=== PATIENT | female | born 1935 | race Caucasian/White ===

== ENCOUNTER 2020-02-22 18:34 | Inpatient (IN) | payer MEDICARE, OTHER ==
[2020-02-22 19:20] LABS: HEMATOCRIT 37.5 % (36.0-47.0); MEAN CORPUSCULAR HEMOGLOBIN 30.3 pg (27.0-33.4); MEAN CORPUSCULAR HGB CONC 34.7 g/dL (32.0-36.0); MEAN CORPUSCULAR VOLUME 87 fl (80-97); PLATELET COUNT 230 10^3/uL (150-450); RED CELL DISTRIBUTION WIDTH 14.1 % (11.5-14.0); WHITE BLOOD COUNT 12.6 10^3/uL (4.0-10.5)
[2020-02-22 19:34] LABS: ALBUMIN 3.7 g/dL (3.5-5.0); ALKALINE PHOSPHATASE 177 U/L (38-126); ANION GAP 9 (5-19); ASPARTATE AMINO TRANSFERASE 30 U/L (14-36); BILIRUBIN,DIRECT 0.1 mg/dL (0.0-0.4); BILIRUBIN,TOTAL 1.1 mg/dL (0.2-1.3); BLOOD UREA NITROGEN 10 mg/dL (7-20); CALCIUM 8.7 mg/dL (8.4-10.2); CARBON DIOXIDE 27 mmol/L (22-30); CHLORIDE 86 mmol/L (98-107); GLUCOSE 111 mg/dL (75-110); POTASSIUM 4.9 mmol/L (3.6-5.0); TOTAL PROTEIN 7.1 g/dL (6.3-8.2)
[2020-02-22 19:39] LABS: ABSOLUTE MONOCYTES # (MANUAL) 0.9 10^3/uL (0.1-1.4); ANISOCYTOSIS SLIGHT; BAND NEUTROPHILS % (MANUAL) 1 % (3-5); BASOPHILS % (MANUAL) 0 % (0-2); BURR CELLS SLIGHT; EOSINOPHILS % (MANUAL) 0 % (0-6); LYMPHOCYTES % (MANUAL) 0 % (13-45); MONOCYTES % (MANUAL) 7 % (3-13); OVALOCYTES SLIGHT; PLATELET COMMENT ADEQUATE; POIKILOCYTOSIS SLIGHT; SEGMENTED NEUTROPHILS % (MAN) 92 % (42-78); TEAR DROP CELLS SLIGHT; TOTAL CELLS COUNTED 100; TOXIC GRANULATION SLIGHT; TOXIC VACUOLATION PRESENT
[2020-02-22] MEDS ORDERED: CEFTRIAXONE 1 GM/D5W RTU 1 GM/50 ML RTUPB IV ONE (20:26)
[2020-02-22] MEDS ORDERED: VANCOMYCIN HCL INJ 1000 MG VIAL IV ONE (20:26)
--- NOTE | 2020-02-22 20:30 | ER Document Report ---
ED General - General Chief Complaint: Skin Problem Stated Complaint: LEG PAIN Time Seen by Provider: 02/22/20 20:06 Notes: Patient is an 84-year-old female that comes to the emergency department by EMS from home for chief complaint of lower extremity pain and lower extremity swelling with redness and weeping fluid especially in the right leg. EMS reports home health called because of her legs. Patient reports leg pain but denies any other symptoms. Patient has a history of dementia and is a poor historian, EMS states they were able to get no other history including no home medications. No fevers reported, no other symptoms reported, history is very limited because of this and patient's dementia. Patient is able to tell me she is in [place] but she has not able to identify her location or events. - Related Data Allergies/Adverse Reactions: Tetanus Vaccines and Toxoid [Tetanus] Allergy (Mild, Verified 02/22/20 18:39) UNK Past Medical History - General Information source: Patient - Social History Smoking Status: Former Smoker Chew tobacco use (# tins/day): No Drug Abuse: None Lives with: Family Family History: Reviewed & Not Pertinent Patient has suicidal ideation: No Patient has homicidal ideation: No - Past Medical History Cardiac Medical History: Reports: Hx Heart Attack - 2008, Hx Hypertension Pulmonary Medical History: Denies: Hx Asthma Neurological Medical History: Denies: Hx Cerebrovascular Accident, Hx Seizures GI Medical History: Denies: Hx Hepatitis, Hx Hiatal Hernia, Hx Ulcer Infectious Medical History: Denies: Hx Hepatitis Past Surgical History: Reports: Hx Open Heart Surgery - 2008. Denies: Hx Hysterectomy, Hx Mastectomy, Hx Pacemaker Review of Systems - Review of Systems Constitutional: See HPI EENT: No symptoms reported Cardiovascular: See HPI Respiratory: No symptoms reported Gastrointestinal: No symptoms reported Genitourinary: No symptoms reported Female Genitourinary: No symptoms reported Musculoskeletal: See HPI Skin: See HPI Hematologic/Lymphatic: No symptoms reported Neurological/Psychological: No symptoms reported Physical Exam - Vital signs Vitals: Temp Pulse Resp BP Pulse Ox 99.1 F 58 L 18 182/70 H 96 02/22/20 18:41 02/22/20 18:41 02/22/20 18:41 02/22/20 18:41 02/22/20 18:41 - Notes Notes: GENERAL: Patient is alert, appears well, interactive, however she is confused HEAD: Normocephalic, atraumatic. EYES: Pupils equal, round, and reactive to light. Extraocular movements intact. ENT: Oral mucosa moist, tongue midline. Oropharynx unremarkable. Airway patent. NECK: Full range of motion. Supple. Trachea midline. No lymphadenopathy. LUNGS: Clear to auscultation bilaterally, no wheezes, rales, or rhonchi. No respiratory distress. Non-tender chest wall. HEART: Regular rate and rhythm. No murmur ABDOMEN: Soft, non-tender. Non-distended. EXTREMITIES: Bilateral pitting edema about 3+, extends up to the knees and thighs. Distal exam shows chronic staining of the skin bilaterally but in addition to this there is erythema and heat with tenderness and there are weeping open sores on the right lower extremity especially. Distal capillary refill and sensation intact. Unremarkable otherwise. BACK: no cervical, thoracic, lumbar midline tenderness. No saddle anesthesia, normal distal neurovascular exam. Moves all extremities in full range of motion. NEUROLOGICAL: Alert and oriented to person and city but no other details. Normal speech. Cranial nerves II through XII grossly intact. Strength 5/5 in all extremities. PSYCH: Normal affect, normal mood. SKIN: Warm, dry, normal turgor. No rashes or lesions noted. Course - Re-evaluation Re-evalutation: Review of records shows that patient has a history of hyperlipidemia on atorvastatin and hypertension on metoprolol and ramipril. Patient was initially hypertensive, no fever, not tachycardic. Patient is most likely not taking her medications. CBC shows leukocytosis with elevation of neutrophils but no bandemia. Chemistry shows significant hyponatremia at 121. No previous records for comparison. Patient has obvious weeping lower extremity swelling with chronic staining and also additional warmth and tenderness suggesting secondary cellulitis. This is worse on the right. Starting on antibiotics, placing on diffuse precautions and slow fluids, patient will require hospitalization. Attempted discussed with patient but she has dementia and did not understand. We have attempted to contact family and will contact them again. Discussed with Dr. Hall, hospitalist, patient accepted to medical floor full admission for lower extremity swelling, cellulitis, hyponatremia. - Vital Signs Vital signs: Temp Pulse Resp BP Pulse Ox 98.3 F 87 18 143/54 H 97 02/23/20 01:05 02/23/20 01:05 02/23/20 01:05 02/23/20 01:05 02/23/20 01:05 - Laboratory Result Diagrams: 02/22/20 19:03 02/22/20 19:03 Laboratory results interpreted by me: 02/22/20 02/22/20 02/22/20 19:03 19:03 19:03 WBC 12.6 H RDW 14.1 H Seg Neuts % (Manual) 92 H Band Neutrophils % 1 L Lymphocytes % (Manual) 0 L Abs Neuts (Manual) 11.7 H Abs Lymphs (Manual) 0.0 L Sodium 121.6 L Chloride 86 L Creatinine 0.41 L Glucose 111 H Alkaline Phosphatase 177 H NT-Pro-B Natriuret Pep 2250 H Discharge - Discharge Clinical Impression: Bilateral lower extremity edema, Hyponatremia Cellulitis Qualifiers: Site of cellulitis: extremity Site of cellulitis of extremity: lower extremity Laterality: right Qualified Code(s): L03.115 - Cellulitis of right lower limb Condition: Stable Disposition: ADMITTED INPATIENT Admitting Provider: Rafael (Hospitalist) Unit Admitted: Medical Floor
[2020-02-22] MEDS: NORMAL SALINE 1000 ML 1,000 ML IV PRN (20:39)
--- NOTE | 2020-02-22 22:22 | RADIOLOGY REPORT (SQ) ---
EXAM DESCRIPTION: XR CHEST 1 VIEW COMPLETED DATE/TME: 02/22/2020 21:01 CLINICAL HISTORY: 84 years Female bilateral LE swelling COMPARISON: None. FINDINGS: Cardiac enlargement. Atelectasis in the lung bases. Small left effusion may be present. Calcified aorta. No acute consolidation. Degenerative changes in the shoulders bilaterally. IMPRESSION: Cardiac enlargement Basilar atelectasis with possible small left effusion.
[2020-02-22] MEDS ORDERED: ONDANSETRON HCL INJ/PF 4 MG/2 ML SDV IV PRN (23:25)
[2020-02-22] MEDS ORDERED: MAG HYDROX/AL HYDROX/SIMETH SUSP 30 ML UDCUP PO PRN (23:25)
[2020-02-22] MEDS ORDERED: MAGNESIUM HYDROXIDE SUSP 30 ML UDCUP PO PRN (23:25)
[2020-02-22] MEDS ORDERED: HYDRALAZINE HCL INJ/PF 20 MG/1 ML SDV IV PRN (23:31)
[2020-02-22] MEDS ORDERED: GUAIFENESIN SYRP 200 MG/10 ML UDC PO PRN (23:31)
[2020-02-22] MEDS ORDERED: MORPHINE SULFATE 10 MG/ML INJ IV PRN ×2 (23:31)
[2020-02-22] MEDS ORDERED: VANCOMYCIN HCL INJ 1000 MG VIAL IV SCH (23:45)
[2020-02-23] MEDS ORDERED: PIPERACILLIN/TAZOBACTAM 3.375 GM VIAL IV SCH
[2020-02-23] MEDS ORDERED: PIPERACILLIN/TAZOBACTAM 3.375 GM VIAL IV ONE ×2 (00:08→04:03)
[2020-02-23] MEDS: MORPHINE SULFATE 10 MG/ML INJ IV PRN ×2 (00:25→04:52)
[2020-02-23] MEDS: LORAZEPAM INJ 2 MG/1 ML VIAL IV PRN ×2 (00:26→04:52)
[2020-02-23] MEDS: PIPERACILLIN SODIUM/TAZOBACTAM 3.375 GM in NORMAL SALINE 100 ML IV SCH ×4 (00:28→17:35)
[2020-02-23] MEDS: FAMOTIDINE 20 MG TABLET PO SCH ×3 (00:28→22:55)
--- NOTE | 2020-02-23 01:46 | PDOC H&P ---
History of Present Illness Admission Date/PCP: 02/22/2020 22:54 SAVITA GOETZ MD Patient complains of: Leg swelling History of Present Illness: JOSE LEAL is a 84 year old female who presents the emergency room with right lower extremity swelling. Patient has severe dementia and is unable to provide historical input. EMS and her home health worker provide the history of that she has chronic bilateral lower extremity edema and over the last several days has developed increased swelling with accompanying redness and weeping involving the right lower extremity. The swelling has also been associated with increased pain of the right lower extremity. No other associated or accompanying signs and symptoms have been noted. The patient had prior similar symptoms. No aggravating or ameliorating factors for her lower extremity swelling have been identified by her home health worker. In the emergency room she was found to have hyponatremia at 121.6, a white blood count of 12,600, an elevated BNP and a moderately more edematous, erythematous, warmer to touch right lower extremity as compared to her left. Patient seemed to have tenderness on palpation of the right lower extremity evidenced by grimace, vocalization of pain and withdrawal from the contact. Antibiotic therapy was initiated by the emergency room physician utilizing Rocephin and vancomycin. She was subsequently admitted to the hospital for further evaluation and treatment. Past Medical History Past Medical History: Due to the patient's severe dementia all historical data presented here is obtained from the best available reliable source. Cardiac Medical History: Reports: Coronary Artery Disease, Myocardial Infarction - 2009, Hypertension Pulmonary Medical History: Denies: Asthma, Chronic Obstructive Pulmonary Disease (COPD) EENT Medical History: Reports: Cataracts Denies: Ears - Hearing aids Neurological Medical History: Denies: Hemorrhagic CVA, Ischemic CVA, Seizures Endocrine Medical History: Denies: Diabetes Mellitus Type 1, Diabetes Mellitus Type 2, Hyperthyroidism, Hypothyroidism Renal/ Medical History: Denies: Chronic Kidney Disease, Nephrolithiasis Malignancy Medical History: Reports: None GI Medical History: Denies: Cirrhosis, Crohn's Disease, Hepatitis, Hiatal Hernia, Ulcerative Colitis Musculoskeltal Medical History: Denies: Arthritis, Gout Skin Medical History: Reports: Other - Chronic venous stasis bilateral lower extremities Denies: Eczema, Psoriasis Psychiatric Medical History: Reports: Dementia Denies: Alcohol Dependency, Substance Abuse, Tobacco Dependency Traumatic Medical History: Reports: None Hematology: Denies: Anemia, Bleeding Tendencies Infectious Medical History: Reports: None Past Surgical History Past Surgical History: Due to the patient's severe dementia all historical data presented here is obtained from the best available reliable source. Past Surgical History: Reports: Cardiac Catheterization - With angioplasty, Coronary Artery Bypass Graft, Other - Bilateral cataract surgery, partial colectomy Social History Information Source: [facility] Records Lives with: Spouse/Significant other Smoking Status: Former Smoker Electronic Cigarette use?: No Frequency of Alcohol Use: None Hx Recreational Drug Use: No Drugs: None Hx Prescription Drug Abuse: No Past Social History Note: Due to the patient's severe dementia all historical data presented here is obtained from the best available reliable source. - Advance Directive Resuscitation Status: Full Code Surrogate healthcare decision maker:: Prabhakar Leal Family History Family History: Other - No available source of reliable data Family History: Due to the patient's severe dementia all historical data presented here is obtained from the best available reliable source. Parental Family History Reviewed: No Children Family History Reviewed: No Sibling(s) Family History Reviewed.: No Medication/Allergy Home Medications: Aspirin [Ecotrin 325 mg EC Tablet] 325 mg PO DAILY 02/22/20 Atorvastatin Calcium [Lipitor 40 mg Tablet] 40 mg PO QHS 02/22/20 Furosemide [Lasix] 20 mg PO QHS 02/22/20 Magnesium Oxide 400 mg PO DAILY 02/22/20 Metoprolol Succinate [Toprol Xl 25 mg Tab.sr] 25 mg PO BID 02/22/20 Potassium Chloride 8 meq PO DAILY 02/22/20 Allergies/Adverse Reactions: Tetanus Vaccines and Toxoid [Tetanus] Allergy (Mild, Verified 02/22/20 18:39) UNK Review of Systems ROS unobtainable: Due to mental status Physical Exam Vital Signs: Temp Pulse Resp BP Pulse Ox 98.5 F 88 18 171/64 H 98 02/22/20 21:09 02/22/20 21:09 02/22/20 21:09 02/22/20 21:09 02/22/20 21:09 Intake & Output 02/20/20 02/21/20 02/22/20 23:59 23:59 23:59 Intake Total 50 Balance 50 Weight 80 kg General appearance: PRESENT: no acute distress, cooperative, obese Head exam: PRESENT: atraumatic, normocephalic Eye exam: PRESENT: conjunctiva pink. ABSENT: conjunctival injection, scleral icterus Ear exam: PRESENT: normal external ear exam. ABSENT: bleeding, drainage Mouth exam: PRESENT: dry mucosa, neck supple Neck exam: ABSENT: thyromegaly, tracheal deviation Respiratory exam: PRESENT: clear to auscultation fermin, symmetrical, unlabored Cardiovascular exam: PRESENT: RRR. ABSENT: clicks, gallop, rubs Pulses: PRESENT: normal carotid pulses, normal radial pulses Vascular exam: PRESENT: normal capillary refill. ABSENT: pallor GI/Abdominal exam: PRESENT: normal bowel sounds, soft Rectal exam: PRESENT: deferred Extremities exam: PRESENT: pedal edema, +2 edema - Left lower extremity with venous stasis changes, other - 3+ pitting edema of the right lower extremity with erythema, increased warmth and apparent tenderness to palpation. ABSENT: joint swelling Musculoskeletal exam: PRESENT: tenderness - Right lower extremity. ABSENT: deformity, dislocation Neurological exam: PRESENT: awake, CN II-XII grossly intact. ABSENT: oriented to person, oriented to place, oriented to time, oriented to situation Psychiatric exam: PRESENT: appropriate affect, normal mood Skin exam: PRESENT: erythema - with 3+ edema and increased warmth to touch in the right lower extremity. Multiple bullae/superficial areas of ulceration are noted anteriorly and laterally on the right lower extremity with serous to serosanguineous drainage noted.. ABSENT: jaundice, rash, urticaria Results Laboratory Results: 02/22/20 19:03 02/22/20 19:03 02/22/20 02/22/20 19:03 19:03 WBC 12.6 H RBC 4.30 Hgb 13.0 Hct 37.5 MCV 87 MCH 30.3 MCHC 34.7 RDW 14.1 H Plt Count 230 Seg Neutrophils % Not Reportable Sodium 121.6 L Potassium 4.9 Chloride 86 L Carbon Dioxide 27 Anion Gap 9 BUN 10 Creatinine 0.41 L Est GFR ( Amer) > 60 Glucose 111 H Calcium 8.7 Total Bilirubin 1.1 AST 30 Alkaline Phosphatase 177 H Total Protein 7.1 Albumin 3.7 02/22/20 19:03 NT-Pro-B Natriuret Pep 2250 H Impressions: Chest X-Ray 02/22/20 21:01 IMPRESSION: Cardiac enlargement Basilar atelectasis with possible small left effusion. Assessment and Plan - Diagnosis (5) Leukocytosis Qualifiers: Leukocytosis type: unspecified Qualified Code(s): D72.829 - Elevated white blood cell count, unspecified Is this a current diagnosis for this admission?: Yes (6) Dementia Qualifiers: Dementia type: unspecified type Dementia behavioral disturbance: without behavioral disturbance Qualified Code(s): F03.90 - Unspecified dementia without behavioral disturbance Is this a current diagnosis for this admission?: Yes - Plan Summary Summary: Patient will be admitted to the medical floor where she will receive routine supportive and symptomatic cares. She will be treated with IV Zosyn and vancomycin initially. She received morphine sulfate 2 to 4 mg IV every 2 hours as needed for pain. She will receive Ativan 1 mg IV every 4 hours as needed for anxiety or restlessness. Her lower extremities will be elevated while she is in bed. CBCs, metabolic profiles and magnesium levels will be obtained as appropriate. Patient will resume her usual home medications, as appropriate, as soon as her medication list has been verified and reconciled. She will be treated with a heart healthy diet. - Time Time Spent with patient: Less than 15 minutes Anticipated discharge: Home with Homehealth, SNF - Inpatient Certification Based on my medical assessment, after consideration of the patient's comorbidities, presenting symptoms, or acuity I expect that the services needed warrant INPATIENT care.: Yes I certify that my determination is in accordance with my understanding of Medicare's requirements for reasonable and necessary INPATIENT services [42 CFR 412.3e].: Yes Medical Necessity: Significant Comorbidiites Make Outpatient Treatment Too Risky, Need Close Monitoring Due to Risk of Patient Decompensation, Need for IV Antibiotics, Risk of Complication if Not Cared For in Hospital
[2020-02-23 04:18] LABS: APPEARANCE,URINE CLOUDY; BILIRUBIN,URINE NEGATIVE (NEGATIVE); COLOR,URINE YELLOW; GLUCOSE, URINE NEGATIVE (NEGATIVE); KETONES,URINE 20 mg/dL (NEGATIVE); LEUKOCYTE ESTERASE,URINE SMALL (NEGATIVE); NITRITE,URINE NEGATIVE (NEGATIVE); PROTEIN,URINE NEGATIVE (NEGATIVE); URINE SPECIFIC GRAVITY 1.019; UROBILINOGEN,URINE NEGATIVE mg/dL (<2.0)
[2020-02-23] MEDS: HEPARIN SOD (PORCINE) 5,000 UNIT/ML 1 ML VIAL SUBCUT SCH ×3 (05:00→22:55)
[2020-02-23 05:03] LABS: HEMATOCRIT 34.6 % (36.0-47.0); HEMOGLOBIN 11.8 g/dL (12.0-15.5); MEAN CORPUSCULAR HEMOGLOBIN 29.8 pg (27.0-33.4); MEAN CORPUSCULAR HGB CONC 34.3 g/dL (32.0-36.0); MEAN CORPUSCULAR VOLUME 87 fl (80-97); PLATELET COUNT 193 10^3/uL (150-450); RED BLOOD COUNT 3.97 10^6/uL (3.72-5.28); RED CELL DISTRIBUTION WIDTH 14.4 % (11.5-14.0); WHITE BLOOD COUNT 17.1 10^3/uL (4.0-10.5)
[2020-02-23 05:29] LABS: ANION GAP 8 (5-19); BLOOD UREA NITROGEN 8 mg/dL (7-20); CALCIUM 8.5 mg/dL (8.4-10.2); CARBON DIOXIDE 25 mmol/L (22-30); CHLORIDE 89 mmol/L (98-107); GLUCOSE 95 mg/dL (75-110); POTASSIUM 4.6 mmol/L (3.6-5.0)
--- NOTE | 2020-02-23 11:12 | PDOC PROGRESS REPORT ---
Subjective Progress Note for:: 02/23/20 Subjective:: Patient is demented. She continued to moan throughout the encounter but not answer any questions. Reason For Visit: BILATERAL LOWER EXTREMITY CELLULITIS,HYPONATREMIA Physical Exam Vital Signs: Temp Pulse Resp BP Pulse Ox 97.9 F 89 14 139/76 H 96 02/23/20 08:00 02/23/20 08:00 02/23/20 08:00 02/23/20 08:00 02/23/20 08:00 Intake & Output 02/22/20 02/23/20 02/24/20 06:59 06:59 06:59 Intake Total 250 Output Total 100 Balance 150 Weight 85.5 kg General appearance: PRESENT: mild distress, well-developed. ABSENT: cooperative Head exam: PRESENT: atraumatic, normocephalic Eye exam: PRESENT: other - Unable to assess Ear exam: PRESENT: normal external ear exam. ABSENT: bleeding, drainage Mouth exam: PRESENT: dry mucosa, tongue midline Neck exam: ABSENT: carotid bruit, lymphadenopathy, thyromegaly Respiratory exam: PRESENT: clear to auscultation fermin - Anteriorly, symmetrical, unlabored. ABSENT: accessory muscle use, prolonged expiratory phas, stridor, tachypnea, wheezes Cardiovascular exam: PRESENT: RRR, +S1, +S2, systolic murmur - 2/6 GI/Abdominal exam: PRESENT: normal bowel sounds, soft. ABSENT: distended, guarding, tenderness Rectal exam: PRESENT: deferred Extremities exam: PRESENT: pedal edema - Improved as evidenced by wrinkled skin on both feet Neurological exam: PRESENT: other - Continuous moaning. Difficult to assess. ABSENT: alert, awake Psychiatric exam: PRESENT: agitated - Mildly agitated Focused psych exam: PRESENT: other - Unable to assess Skin exam: PRESENT: dry, erythema, warm Results Laboratory Results: 02/23/20 04:29 02/23/20 04:29 02/22/20 02/22/20 02/23/20 19:03 19:03 03:51 WBC 12.6 H RBC 4.30 Hgb 13.0 Hct 37.5 MCV 87 MCH 30.3 MCHC 34.7 RDW 14.1 H Plt Count 230 Seg Neutrophils % Not Reportable Sodium 121.6 L Potassium 4.9 Chloride 86 L Carbon Dioxide 27 Anion Gap 9 BUN 10 Creatinine 0.41 L Est GFR ( Amer) > 60 Glucose 111 H Calcium 8.7 Magnesium Total Bilirubin 1.1 AST 30 Alkaline Phosphatase 177 H Total Protein 7.1 Albumin 3.7 TSH Urine Color YELLOW Urine Appearance CLOUDY Urine pH 8.0 Ur Specific [place] 1.019 Urine Protein NEGATIVE Urine Glucose (UA) NEGATIVE Urine Ketones 20 H Urine Blood SMALL H Urine Nitrite NEGATIVE Ur Leukocyte Esterase SMALL H Urine WBC (Auto) 7 Urine RBC (Auto) 4 02/23/20 02/23/20 02/23/20 04:29 04:29 04:29 WBC 17.1 H RBC 3.97 Hgb 11.8 L Hct 34.6 L MCV 87 MCH 29.8 MCHC 34.3 RDW 14.4 H Plt Count 193 Seg Neutrophils % Sodium 122.2 L Potassium 4.6 Chloride 89 L Carbon Dioxide 25 Anion Gap 8 BUN 8 Creatinine 0.32 L Est GFR ( Amer) > 60 Glucose 95 Calcium 8.5 Magnesium 1.9 Total Bilirubin AST Alkaline Phosphatase Total Protein Albumin TSH 3.09 Urine Color Urine Appearance Urine pH Ur Specific [place] Urine Protein Urine Glucose (UA) Urine Ketones Urine Blood Urine Nitrite Ur Leukocyte Esterase Urine WBC (Auto) Urine RBC (Auto) 02/22/20 19:03 NT-Pro-B Natriuret Pep 2250 H Impressions: Chest X-Ray 02/22/20 21:01 IMPRESSION: Cardiac enlargement Basilar atelectasis with possible small left effusion. Assessment and Plan - Diagnosis (1) Cellulitis of right lower extremity Is this a current diagnosis for this admission?: Yes Plan: 02/23/2020 (4) Chronic venous stasis dermatitis of both lower extremities Is this a current diagnosis for this admission?: Yes Plan: 02/23/2020 Possibly a combination of chronic lower extremity edema versus some level of congestive heart failure. There is cardiomegaly. There is no echocardiogram on record. I will order an echocardiogram so that we can bolster her medication regimen if there is failure present. (5) Localized edema Is this a current diagnosis for this admission?: Yes Plan: 02/23/2020 As noted above the edema is likely multifactorial. We will continue gentle diuretic therapy at this time. Elevate legs when possible. Compression therapy would likely be very uncomfortable for the patient. (6) Leukocytosis Qualifiers: Leukocytosis type: unspecified Qualified Code(s): D72.829 - Elevated white blood cell count, unspecified Is this a current diagnosis for this admission?: Yes Plan: 02/23/2020 Likely a stress reaction from the infection. She is on antibiotic therapy. Monitor with serial CBC studies. (7) Dementia Qualifiers: Dementia type: unspecified type Dementia behavioral disturbance: without behavioral disturbance Qualified Code(s): F03.90 - Unspecified dementia without behavioral disturbance Is this a current diagnosis for this admission?: Yes Plan: 02/23/2020 Unfortunately the patient cannot provide additional information at this time. She is not on any medications specifically for dementia. Will monitor closely. If we discover any additional information we can adjust her treatment regimen accordingly. - Plan Summary Summary: Patient will be admitted to the medical floor where she will receive routine supportive and symptomatic cares. She will be treated with IV Zosyn and va ncomycin initially. She received morphine sulfate 2 to 4 mg IV every 2 hours as needed for pain. She will receive Ativan 1 mg IV every 4 hours as needed for anxiety or restlessness. Her lower extremities will be elevated while she is in bed. CBCs, metabolic profiles and magnesium levels will be obtained as appropriate. Patient will resume her usual home medications, as appropriate, as soon as her medication list has been verified and reconciled. She will be treated with a heart healthy diet. - Time Time Spent with patient: 15-24 minutes Medications reviewed and adjusted accordingly: Yes Anticipated discharge: Home
[2020-02-23] MEDS: DOCUSATE SODIUM 100 MG CAPSULE PO SCH ×2 (11:16→17:32)
[2020-02-23] MEDS: MAGNESIUM OXIDE 400 MG TABLET PO SCH (12:48)
[2020-02-23] MEDS: POTASSIUM CHLORIDE 10 MEQ TABLET.ER PO SCH (12:48)
[2020-02-23] MEDS: METOPROLOL SUCCINATE 25 MG TAB.SR.24H PO SCH (17:32)
[2020-02-23] MEDS: NORMAL SALINE 1000 ML 1,000 ML IV PRN ×2 (17:35→20:35)
[2020-02-23] MEDS ORDERED: ZIPRASIDONE MESYLATE INJ/PF 20 MG SDV IM PRN (18:45)
[2020-02-23] MEDS ORDERED: PROMETHAZINE HCL INJ 25 MG/1 ML VIAL IV PRN (18:46)
[2020-02-23] MEDS ORDERED: PROMETHAZINE HCL 25 MG SUPP (4 SUPP/ER DISP) PR PRN (18:46)
[2020-02-23] MEDS ORDERED: PROMETHAZINE HCL 25 MG TABLET PO PRN (18:46)
[2020-02-23] MEDS ORDERED: NORMAL SALINE 1000 ML 1,000 ML IV ONE (19:00)
[2020-02-23] MEDS: VANCOMYCIN HCL 1,000 MG in DEXTROSE 5%-WATER 250 ML IV SCH (20:35)
[2020-02-23] MEDS ORDERED: FUROSEMIDE 20 MG TABLET PO SCH (22:00)
[2020-02-23] MEDS: ATORVASTATIN CALCIUM 40 MG TABLET PO SCH (22:55)
[2020-02-23 23:41] LABS: OSMOLALITY,URINE 517 mOsm/kg (300-900)
[2020-02-23 23:44] LABS: URINE SODIUM 107 mmol/L (30-90)
[2020-02-24] MEDS: PIPERACILLIN SODIUM/TAZOBACTAM 3.375 GM in NORMAL SALINE 100 ML IV SCH ×5 (00:40→23:49)
[2020-02-24] MEDS: HEPARIN SOD (PORCINE) 5,000 UNIT/ML 1 ML VIAL SUBCUT SCH ×3 (05:14→22:20)
[2020-02-24] MEDS: NORMAL SALINE 1000 ML 1,000 ML IV PRN (05:14)
[2020-02-24 05:32] LABS: HEMOGLOBIN 12.8 g/dL (12.0-15.5); MEAN CORPUSCULAR HEMOGLOBIN 29.8 pg (27.0-33.4); MEAN CORPUSCULAR HGB CONC 34.5 g/dL (32.0-36.0); MEAN CORPUSCULAR VOLUME 87 fl (80-97); PLATELET COUNT 177 10^3/uL (150-450); RED BLOOD COUNT 4.28 10^6/uL (3.72-5.28); RED CELL DISTRIBUTION WIDTH 14.3 % (11.5-14.0); WHITE BLOOD COUNT 16.8 10^3/uL (4.0-10.5)
[2020-02-24] MEDS: MORPHINE SULFATE 10 MG/ML INJ IV PRN (05:32)
[2020-02-24 07:07] LABS: ANION GAP 9 (5-19); BLOOD UREA NITROGEN 7 mg/dL (7-20); CALCIUM 7.8 mg/dL (8.4-10.2); CARBON DIOXIDE 22 mmol/L (22-30); CHLORIDE 93 mmol/L (98-107); GLUCOSE 92 mg/dL (75-110); POTASSIUM 4.2 mmol/L (3.6-5.0)
[2020-02-24] MEDS ORDERED: PROMETHAZINE HCL 25 MG SUPP.RECT PR PRN (08:59)
[2020-02-24] MEDS ORDERED: POTASSIUM CHLORIDE 8 MEQ PO SCH (10:00)
[2020-02-24] MEDS ORDERED: (PENDING PHARMACY ID) (Magnesium Oxide [Magnesium Oxide] 400 MG) PO SCH (10:00)
[2020-02-24] MEDS: FAMOTIDINE 20 MG TABLET PO SCH ×2 (10:20→22:20)
[2020-02-24] MEDS: MAGNESIUM OXIDE 400 MG TABLET PO SCH (10:20)
[2020-02-24] MEDS: DOCUSATE SODIUM 100 MG CAPSULE PO SCH ×2 (10:20→19:07)
[2020-02-24] MEDS: ASPIRIN 325 MG TABLET, ENT COATED PO SCH (10:20)
[2020-02-24] MEDS: POTASSIUM CHLORIDE 10 MEQ TABLET.ER PO SCH (10:20)
[2020-02-24] MEDS: METOPROLOL SUCCINATE 25 MG TAB.SR.24H PO SCH ×2 (10:22→19:06)
[2020-02-24] MEDS ORDERED: FUROSEMIDE 20 MG TABLET PO ONE ×2 (12:21→17:00)
--- NOTE | 2020-02-24 12:25 | PDOC CONSULTATION ---
Consultation Consult Date: 02/24/20 Provider Consulted: ABHAY JUNG Consult reason:: Congestive heart failure History of Present Illness Admission Date/PCP: 02/22/20 23:06 SAVITA GOETZ MD Patient complains of: Patient is demented. No complaints voiced History of Present Illness: JOES QUIROZ is a 84 year old female No reliable history can be obtained on account of advanced dementia Patient with possible underlying coronary artery disease given healed sternotomy incision who presents with cellulitis. No other history can be obtained reliably. Presently she is not reporting any chest pain or dyspnea. Intravenous antibiotic therapy has been commenced for possible cellulitis. Unable to obtain family history Unable to ascertain smoking status Unable to obtain surgical history although patient has a healed sternotomy scar and evidence of sternotomy on chest x-ray. There is also cardiomegaly. Past Medical History Cardiac Medical History: Reports: Coronary Artery Disease, Myocardial Infarction - 2009, Hypertension Pulmonary Medical History: Denies: Asthma, Chronic Obstructive Pulmonary Disease (COPD) EENT Medical History: Reports: Cataracts Denies: Ears - Hearing aids Neurological Medical History: Denies: Hemorrhagic CVA, Ischemic CVA, Seizures Endocrine Medical History: Denies: Diabetes Mellitus Type 1, Diabetes Mellitus Type 2, Hyperthyroidism, Hypothyroidism Renal/ Medical History: Denies: Chronic Kidney Disease, Nephrolithiasis Malignancy Medical History: Reports: None GI Medical History: Denies: Cirrhosis, Crohn's Disease, Hepatitis, Hiatal Hernia, Ulcerative Colitis Musculoskeltal Medical History: Denies: Arthritis, Gout Skin Medical History: Reports: Other - Chronic venous stasis bilateral lower extremities Denies: Eczema, Psoriasis Psychiatric Medical History: Reports: Dementia Denies: Alcohol Dependency, Substance Abuse, Tobacco Dependency Traumatic Medical History: Reports: None Hematology: Denies: Anemia, Sickle Cell Disease, Bleeding Tendencies Infectious Medical History: Reports: None Past Surgical History Past Surgical History: Reports: Cardiac Catheterization - With angioplasty, Coronary Artery Bypass Graft, Other - Bilateral cataract surgery, partial colectomy Denies: Amputation, Hysterectomy, Mastectomy, Pacemaker Social History Lives with: Family Smoking Status: Former Smoker Electronic Cigarette use?: No Frequency of Alcohol Use: None Hx Recreational Drug Use: No Drugs: None Hx Prescription Drug Abuse: No - Advance Directive Resuscitation Status: Full Code Family History Family History: Reviewed & Not Pertinent Parental Family History Reviewed: No - Advanced dementia Children Family History Reviewed: NA Sibling(s) Family History Reviewed.: NA Medication/Allergy Home Medications: Aspirin [Ecotrin 325 mg EC Tablet] 325 mg PO DAILY 02/22/20 Atorvastatin Calcium [Lipitor 40 mg Tablet] 40 mg PO QHS 02/22/20 Furosemide [Lasix] 20 mg PO Q12 02/22/20 Magnesium Oxide 400 mg PO DAILY 02/22/20 Potassium Chloride 8 meq PO DAILY 02/22/20 Cephalexin Monohydrate [Keflex 500 mg Capsule] 500 mg PO Q8 MDD FOR 7 DAYS 02/23/20 Ciclopirox/Skin Cleanser No.28 [Ciclodan 0.77% Cream Kit] 1 applic TOP BID 02/23/20 Lactobacillus Acidophilus [Florajen] 460 mg PO DAILY 02/23/20 Metoprolol Tartrate [Lopressor 25 mg Tablet] 25 mg PO BID 02/23/20 Allergies/Adverse Reactions: Tetanus Vaccines and Toxoid [Tetanus] Allergy (Mild, Verified 02/22/20 18:39) UNK Review of Systems ROS unobtainable: Due to mental status - Advanced dementia Physical Exam Vital Signs: Temp Pulse Resp BP Pulse Ox 98.5 F 58 L 18 162/68 H 93 02/24/20 07:58 02/24/20 07:58 02/24/20 07:58 02/24/20 10:04 02/24/20 07:58 Intake & Output 02/23/20 02/24/20 02/25/20 06:59 06:59 06:59 Intake Total 1250 2750 100 Output Total 100 300 Balance 1150 2450 100 Weight 85.5 kg 82.3 kg General appearance: PRESENT: cooperative, well-developed, well-nourished Head exam: PRESENT: atraumatic, normocephalic Eye exam: PRESENT: conjunctiva pink, EOMI Respiratory exam: PRESENT: decreased breath sounds, symmetrical, unlabored Cardiovascular exam: PRESENT: RRR, +S1, +S2 Pulses: PRESENT: normal radial pulses GI/Abdominal exam: PRESENT: soft Rectal exam: PRESENT: deferred Neurological exam: PRESENT: alert, awake, oriented to person, oriented to place, oriented to time Psychiatric exam: PRESENT: other Skin exam: PRESENT: dry, intact, normal color Results Laboratory Results: 02/24/20 05:05 02/24/20 06:19 02/23/20 02/23/20 02/24/20 13:30 23:13 05:05 WBC 16.8 H RBC 4.28 Hgb 12.8 Hct 37.0 MCV 87 MCH 29.8 MCHC 34.5 RDW 14.3 H Plt Count 177 Sodium Potassium Chloride Carbon Dioxide Anion Gap BUN Creatinine Est GFR ( Amer) Est GFR (Non-Af Amer) Glucose Serum Osmolality 248 L Calcium Magnesium Urine Osmolality 517 02/24/20 02/24/20 05:05 06:19 WBC RBC Hgb Hct MCV MCH MCHC RDW Plt Count Sodium Cancelled 123.6 L Potassium Cancelled 4.2 Chloride Cancelled 93 L Carbon Dioxide Cancelled 22 Anion Gap Cancelled 9 BUN Cancelled 7 Creatinine Cancelled 0.37 L Est GFR ( Amer) Cancelled > 60 Est GFR (Non-Af Amer) Cancelled Glucose Cancelled 92 Serum Osmolality Calcium Cancelled 7.8 L Magnesium Cancelled 1.8 Urine Osmolality 02/22/20 19:03 NT-Pro-B Natriuret Pep 2250 H Impressions: Chest X-Ray 02/22/20 21:01 IMPRESSION: Cardiac enlargement Basilar atelectasis with possible small left effusion. Assessment & Plan - Diagnosis (1) CHF (congestive heart failure) Is this a current diagnosis for this admission?: Yes Plan: Presently patient does not appear to be decompensated. We will obtain transthoracic echocardiogram given possible history of CABG as well as abnormal chest x-ray with evidence of pulmonary edema likely We will watch fluid status closely. We will initiate therapy with beta-blockers and NILS inhibitors. (2) Cellulitis Qualifiers: Site of cellulitis: extremity Site of cellulitis of extremity: lower extremity Laterality: right Qualified Code(s): L03.115 - Cellulitis of right lower limb Is this a current diagnosis for this admission?: Yes Plan: Continue antibiotic therapy. - Notes Notes: Patient with advanced dementia with possible healed sternotomy indicating underlying coronary artery disease and CABG. In the absence of any reliable history we will proceed with echocardiogram and initiate guideline directed medical therapy for this consisting of aspirin statin and beta-em. We will watch fluid status closely. Chest x-ray is abnormal. There may be ongoing consolidation versus pulmonary edema. We will also obtain a twelve-lead EKG.
[2020-02-24] MEDS: LOSARTAN POTASSIUM 25 MG TABLET PO SCH (12:26)
--- NOTE | 2020-02-24 12:27 | PDOC PROGRESS REPORT ---
Subjective Progress Note for:: 02/24/20 Subjective:: The patient is sitting in the chair. She is interacting verbally but quite flat. Her lunch tray is sitting in front of her untouched. She does feel that her leg pain is better. Of note she has cyanotic changes in both hands at the fingertips. Reason For Visit: BILATERAL LOWER EXTREMITY CELLULITIS,HYPONATREMIA Physical Exam Vital Signs: Temp Pulse Resp BP Pulse Ox 98.5 F 58 L 18 162/68 H 93 02/24/20 07:58 02/24/20 07:58 02/24/20 07:58 02/24/20 10:04 02/24/20 07:58 Intake & Output 02/23/20 02/24/20 02/25/20 06:59 06:59 06:59 Intake Total 1250 2750 100 Output Total 100 300 Balance 1150 2450 100 Weight 85.5 kg 82.3 kg General appearance: PRESENT: no acute distress, cooperative, well-developed Head exam: PRESENT: atraumatic, normocephalic Eye exam: PRESENT: conjunctiva pink. ABSENT: scleral icterus Ear exam: PRESENT: normal external ear exam. ABSENT: bleeding, drainage Mouth exam: PRESENT: moist, tongue midline Respiratory exam: PRESENT: rales - Faint rales at bases, symmetrical, unlabored. ABSENT: prolonged expiratory phas, rhonchi, tachypnea, wheezes Cardiovascular exam: PRESENT: RRR, +S1, +S2, systolic murmur - 2/6 GI/Abdominal exam: PRESENT: normal bowel sounds, soft. ABSENT: distended, guarding, tenderness Rectal exam: PRESENT: deferred Gentrourinary exam: ABSENT: indwelling catheter Extremities exam: PRESENT: pedal edema, other - Upper extremities are edematous as well. Musculoskeletal exam: PRESENT: ambulatory Neurological exam: PRESENT: alert, awake, oriented to person, oriented to place Psychiatric exam: PRESENT: flat affect. ABSENT: agitated, anxious Focused psych exam: ABSENT: delusional, paranoid, restlessness Skin exam: PRESENT: cyanosis - Fingertips on both hands are cool to the touch with dusky discoloration at the tips., dry, erythema - Bilateral lower extremities, warm Results Laboratory Results: 02/24/20 05:05 02/24/20 06:19 02/23/20 02/23/20 02/24/20 13:30 23:13 05:05 WBC 16.8 H RBC 4.28 Hgb 12.8 Hct 37.0 MCV 87 MCH 29.8 MCHC 34.5 RDW 14.3 H Plt Count 177 Sodium Potassium Chloride Carbon Dioxide Anion Gap BUN Creatinine Est GFR ( Amer) Est GFR (Non-Af Amer) Glucose Serum Osmolality 248 L Calcium Magnesium Urine Osmolality 517 02/24/20 02/24/20 05:05 06:19 WBC RBC Hgb Hct MCV MCH MCHC RDW Plt Count Sodium Cancelled 123.6 L Potassium Cancelled 4.2 Chloride Cancelled 93 L Carbon Dioxide Cancelled 22 Anion Gap Cancelled 9 BUN Cancelled 7 Creatinine Cancelled 0.37 L Est GFR ( Amer) Cancelled > 60 Est GFR (Non-Af Amer) Cancelled Glucose Cancelled 92 Serum Osmolality Calcium Cancelled 7.8 L Magnesium Cancelled 1.8 Urine Osmolality 02/22/20 19:03 NT-Pro-B Natriuret Pep 2250 H Impressions: Chest X-Ray 02/22/20 21:01 IMPRESSION: Cardiac enlargement Basilar atelectasis with possible small left effusion. Assessment and Plan - Diagnosis (1) Cellulitis of right lower extremity Is this a current diagnosis for this admission?: Yes Plan: 02/23/2020 02/24/2020 Continue current antibiotics. At some point I would like to see if I can narrow the spectrum. Clindamycin or Bactrim might be effective. The white blood cell count did go up. I will continue to monitor. If it continues to rise I may need to redraw blood cultures and change the antibiotics. (2) Hyponatremia Is this a current diagnosis for this admission?: Yes Plan: 02/23/2020 We will check urine sodium, urine osmolality and serum osmolality 02/24/2020 Patient with SIADH. Will stop IV fluids, place 1.2 L fluid restriction and continue to monitor electrolytes. (3) Bilateral lower extremity edema Is this a current diagnosis for this admission?: Yes Plan: 02/23/2020 Elevate legs when possible. Diuresis as tolerated. 02/24/2020 Changes as noted above. Try and elevate legs when possible. (4) Chronic venous stasis dermatitis of both lower extremities Is this a current diagnosis for this admission?: Yes Plan: 02/23/2020 Possibly a combination of chronic lower extremity edema versus some level of congestive heart failure. There is cardiomegaly. There is no echocardiogram on record. I will order an echocardiogram so that we can bolster her medication regimen if there is failure present. 02/24/2020 The patient will have an echocardiogram. We will see if there is chronic lower extremity edema that is cardiac in its etiology. No compression at this time as it would be quite painful for the patient. (5) Leukocytosis Qualifiers: Leukocytosis type: unspecified Qualified Code(s): D72.829 - Elevated white blood cell count, unspecified Is this a current diagnosis for this admission?: Yes Plan: 02/23/2020 Likely a stress reaction from the infection. She is on antibiotic therapy. Monitor with serial CBC studies. 02/24/2020 White count is slightly better than yesterday. It is still higher than at adm ission. Continue antibiotics and continue to monitor white blood cell count. (6) Dementia Qualifiers: Dementia type: unspecified type Dementia behavioral disturbance: without behavioral disturbance Qualified Code(s): F03.90 - Unspecified dementia without behavioral disturbance Is this a current diagnosis for this admission?: Yes Plan: 02/23/2020 Unfortunately the patient cannot provide additional information at this time. She is not on any medications specifically for dementia. Will monitor closely. If we discover any additional information we can adjust her treatment regimen accordingly. 02/24/2020 The patient was actually sitting up in the chair. She had not touched her lunch. She did try and answer questions but the answers were somewhat vague. She did not establish eye contact. We will continue to monitor. (7) Raynaud phenomenon Qualifiers: Raynaud?s-associated gangrene presence: without gangrene Qualified Code(s): I73.00 - Raynaud's syndrome without gangrene Is this a current diagnosis for this admission?: Yes Plan: 02/24/2020 The patient displays typical characteristics for ray nodes. I spoke with the nurse will try and keep the patient's hands warm. She is already on aspirin as well as her cardiac medications. We will continue to monitor. If conservative therapy is not enough we may consider additional medications. - Plan Summary Summary: Patient will be admitted to the medical floor where she will receive routine supportive and symptomatic cares. She will be treated with IV Zosyn and vancomycin initially. She received morphine sulfate 2 to 4 mg IV every 2 hours as needed for pain. She will receive Ativan 1 mg IV every 4 hours as needed for anxiety or restlessness. Her lower extremities will be elevated while she is in bed. CBCs, metabolic profiles and magnesium levels will be obtained as appropriate. Patient will resume her usual home medications, as appropriate, as soon as her medication list has been verified and reconciled. She will be treated with a heart healthy diet. - Time Time Spent with patient: 15-24 minutes Medications reviewed and adjusted accordingly: Yes
--- NOTE | 2020-02-24 14:03 | EKG REPORT ---
SEVERITY:- ABNORMAL ECG - SINUS RHYTHM INCOMPLETE RBBB AND LAFB CONSIDER ANTERIOR INFARCT : Confirmed by: Edmond Luciano MD 24-Feb-2020 14:02:37
[2020-02-24] MEDS: VANCOMYCIN HCL 1,000 MG in DEXTROSE 5%-WATER 250 ML IV SCH (22:19)
[2020-02-24] MEDS: ATORVASTATIN CALCIUM 40 MG TABLET PO SCH (22:19)
[2020-02-25 05:21] LABS: HEMATOCRIT 35.5 % (36.0-47.0); HEMOGLOBIN 12.3 g/dL (12.0-15.5); MEAN CORPUSCULAR HEMOGLOBIN 30.4 pg (27.0-33.4); MEAN CORPUSCULAR HGB CONC 34.6 g/dL (32.0-36.0); MEAN CORPUSCULAR VOLUME 88 fl (80-97); PLATELET COUNT 235 10^3/uL (150-450); RED BLOOD COUNT 4.06 10^6/uL (3.72-5.28); RED CELL DISTRIBUTION WIDTH 14.9 % (11.5-14.0); WHITE BLOOD COUNT 10.6 10^3/uL (4.0-10.5)
[2020-02-25 05:44] LABS: ANION GAP 6 (5-19); BLOOD UREA NITROGEN 11 mg/dL (7-20); CALCIUM 8.1 mg/dL (8.4-10.2); CARBON DIOXIDE 24 mmol/L (22-30); CHLORIDE 94 mmol/L (98-107); GLUCOSE 92 mg/dL (75-110); POTASSIUM 4.3 mmol/L (3.6-5.0)
[2020-02-25] MEDS: HEPARIN SOD (PORCINE) 5,000 UNIT/ML 1 ML VIAL SUBCUT SCH ×3 (05:45→21:45)
[2020-02-25] MEDS: ACETAMINOPHEN 325 MG TABLET PO PRN (05:45)
[2020-02-25] MEDS: PIPERACILLIN SODIUM/TAZOBACTAM 3.375 GM in NORMAL SALINE 100 ML IV SCH ×3 (05:45→17:56)
[2020-02-25] MEDS: METOPROLOL SUCCINATE 25 MG TAB.SR.24H PO SCH ×2 (09:48→17:56)
[2020-02-25] MEDS: POTASSIUM CHLORIDE 10 MEQ TABLET.ER PO SCH (09:48)
[2020-02-25] MEDS: ASPIRIN 325 MG TABLET, ENT COATED PO SCH (09:48)
[2020-02-25] MEDS: FAMOTIDINE 20 MG TABLET PO SCH ×2 (09:48→21:50)
[2020-02-25] MEDS: LOSARTAN POTASSIUM 25 MG TABLET PO SCH (09:49)
[2020-02-25] MEDS: DOCUSATE SODIUM 100 MG CAPSULE PO SCH ×2 (09:49→17:56)
[2020-02-25] MEDS: MAGNESIUM OXIDE 400 MG TABLET PO SCH (09:49)
[2020-02-25] MEDS: FUROSEMIDE 20 MG TABLET PO SCH (09:49)
--- NOTE | 2020-02-25 12:20 | PDOC PROGRESS REPORT ---
Subjective Progress Note for:: 02/25/20 Subjective:: Patient is resting. She did have breakfast. Sleepy and somnolent Reason For Visit: BILATERAL LOWER EXTREMITY CELLULITIS,HYPONATREMIA Physical Exam Vital Signs: Temp Pulse Resp BP Pulse Ox 98.2 F 75 19 125/55 L 100 02/25/20 08:24 02/25/20 08:24 02/25/20 08:24 02/25/20 08:24 02/25/20 08:24 Intake & Output 02/24/20 02/25/20 02/26/20 06:59 06:59 06:59 Intake Total 2750 2135 Output Total 300 500 Balance 2450 1635 Weight 82.3 kg 83.4 kg General appearance: PRESENT: cooperative, obese, well-developed, well-nourished Head exam: PRESENT: atraumatic Eye exam: PRESENT: conjunctiva pink Respiratory exam: PRESENT: crackles, decreased breath sounds, symmetrical, unlabored Cardiovascular exam: PRESENT: RRR, +S1, +S2 Pulses: PRESENT: normal radial pulses GI/Abdominal exam: PRESENT: soft Rectal exam: PRESENT: deferred Skin exam: PRESENT: intact, rash, skin tears Results Laboratory Results: 02/25/20 04:53 02/25/20 04:53 02/25/20 02/25/20 04:53 04:53 WBC 10.6 H RBC 4.06 Hgb 12.3 Hct 35.5 L MCV 88 MCH 30.4 MCHC 34.6 RDW 14.9 H Plt Count 235 Sodium 123.7 L Potassium 4.3 Chloride 94 L Carbon Dioxide 24 Anion Gap 6 BUN 11 Creatinine 0.44 L Est GFR ( Amer) > 60 Glucose 92 Calcium 8.1 L Magnesium 1.9 02/22/20 19:03 NT-Pro-B Natriuret Pep 2250 H Impressions: Chest X-Ray 02/22/20 21:01 IMPRESSION: Cardiac enlargement Basilar atelectasis with possible small left effusion. Assessment & Plan - Diagnosis (1) CHF (congestive heart failure) Is this a current diagnosis for this admission?: Yes Plan: She probably has mildly decompensated congestive heart failure We will obtain echocardiogram Watch volume status Continue furosemide 20 mg daily Continue losartan Continue metoprolol Avoid added salt Limit total free water intake to less than 1 L/day especially given edema. (2) Cellulitis Qualifiers: Site of cellulitis: extremity Site of cellulitis of extremity: lower extremity Laterality: right Qualified Code(s): L03.115 - Cellulitis of right lower limb Is this a current diagnosis for this admission?: Yes Plan: Presently receiving therapy with broad-spectrum antibiotics - Notes Notes: Postsurgical changes in the chest with midline sternotomy suggestive of probably CABG in the absence of history to the contrary. Medical therapy as feasible for cardiac disease would be ideal
--- NOTE | 2020-02-25 12:53 | PDOC PROGRESS REPORT ---
Subjective Progress Note for:: 02/25/20 Subjective:: Sitting up eating lunch. Wide awake and conversant. Reason For Visit: BILATERAL LOWER EXTREMITY CELLULITIS,HYPONATREMIA Physical Exam Vital Signs: Temp Pulse Resp BP Pulse Ox 98.2 F 75 19 125/55 L 100 02/25/20 08:24 02/25/20 08:24 02/25/20 08:24 02/25/20 08:24 02/25/20 08:24 Intake & Output 02/24/20 02/25/20 02/26/20 06:59 06:59 06:59 Intake Total 2750 2135 Output Total 300 500 Balance 2450 1635 Weight 82.3 kg 83.4 kg General appearance: PRESENT: no acute distress, cooperative, well-developed, we ll-nourished Head exam: PRESENT: atraumatic, normocephalic Eye exam: PRESENT: conjunctiva pink. ABSENT: scleral icterus Ear exam: PRESENT: normal external ear exam. ABSENT: bleeding, drainage Mouth exam: PRESENT: moist, tongue midline Neck exam: ABSENT: carotid bruit, lymphadenopathy, thyromegaly, tracheal deviation Respiratory exam: PRESENT: symmetrical, unlabored. ABSENT: accessory muscle use, prolonged expiratory phas, rales, rhonchi, tachypnea, wheezes Cardiovascular exam: PRESENT: RRR, +S1, +S2 GI/Abdominal exam: PRESENT: soft. ABSENT: distended, guarding, tenderness Rectal exam: PRESENT: deferred Extremities exam: PRESENT: tenderness, +1 edema Musculoskeletal exam: ABSENT: ambulatory - Ambulation is poor. She needed 2 person assist to sit in the chair Neurological exam: PRESENT: alert, awake, oriented to person, oriented to place, oriented to situation Psychiatric exam: PRESENT: flat affect. ABSENT: agitated, anxious Focused psych exam: ABSENT: delusional, paranoid, restlessness Skin exam: PRESENT: erythema - Bilateral lower extremities Results Laboratory Results: 02/25/20 04:53 02/25/20 04:53 02/25/20 02/25/20 04:53 04:53 WBC 10.6 H RBC 4.06 Hgb 12.3 Hct 35.5 L MCV 88 MCH 30.4 MCHC 34.6 RDW 14.9 H Plt Count 235 Sodium 123.7 L Potassium 4.3 Chloride 94 L Carbon Dioxide 24 Anion Gap 6 BUN 11 Creatinine 0.44 L Est GFR ( Amer) > 60 Glucose 92 Calcium 8.1 L Magnesium 1.9 02/22/20 19:03 NT-Pro-B Natriuret Pep 2250 H Impressions: Chest X-Ray 02/22/20 21:01 IMPRESSION: Cardiac enlargement Basilar atelectasis with possible small left effusion. Assessment and Plan - Diagnosis (1) Cellulitis of right lower extremity Is this a current diagnosis for this admission?: Yes Plan: 02/23/2020 02/24/2020 Continue current antibiotics. At some point I would like to see if I can narrow the spectrum. Clindamycin or Bactrim might be effective. The white blood cell count did go up. I will continue to monitor. If it continues to rise I may need to redraw blood cultures and change the antibiotics. 02/25/2020 White blood cell count is almost normal. The patient is close to discharge. Consider switching to oral antibiotic. (2) Hyponatremia Is this a current diagnosis for this admission?: Yes Plan: 02/23/2020 We will check urine sodium, urine osmolality and serum osmolality 02/24/2020 Patient with SIADH. Will stop IV fluids, place 1.2 L fluid restriction and continue to monitor electrolytes. 02/25/2020 Patient with SIADH. Cardiology suggests a 1 L of fluid restriction. We will continue to monitor electrolytes. (3) Bilateral lower extremity edema Is this a current diagnosis for this admission?: Yes Plan: 02/23/2020 Elevate legs when possible. Diuresis as tolerated. 02/24/2020 Changes as noted above. Try and elevate legs when possible. 02/25/2020 Hard to differentiate the swelling from failure, venous insufficiency or both. The appearance of her legs suggests at least chronic venous insufficiency. Continue leg elevation when possible. Consider compression stockings once cellulitis is resolved. (4) Chronic venous stasis dermatitis of both lower extremities Is this a current diagnosis for this admission?: Yes Plan: 02/23/2020 Possibly a combination of chronic lower extremity edema versus some level of congestive heart failure. There is cardiomegaly. There is no echocardiogram on record. I will order an echocardiogram so that we can bolster her medication regimen if there is failure present. 02/24/2020 The patient will have an echocardiogram. We will see if there is chronic lower extremity edema that is cardiac in its etiology. No compression at this time as it would be quite painful for the patient. 02/25/2020 Start compression therapy when cellulitis is resolved (5) Leukocytosis Qualifiers: Leukocytosis type: unspecified Qualified Code(s): D72.829 - Elevated white blood cell count, unspecified Is this a current diagnosis for this admission?: Yes Plan: 02/23/2020 Likely a stress reaction from the infection. She is on antibiotic therapy. Monitor with serial CBC studies. 02/24/2020 White count is slightly better than yesterday. It is still higher than at admission. Continue antibiotics and continue to monitor white blood cell count. 02/25/2020 significantly improved on antibiotics. Continue to monitor. (6) Dementia Qualifiers: Dementia type: unspecified type Dementia behavioral disturbance: without behavioral disturbance Qualified Code(s): F03.90 - Unspecified dementia without behavioral disturbance Is this a current diagnosis for this admission?: Yes Plan: 02/23/2020 Unfortunately the patient cannot provide additional information at this time. She is not on any medications specifically for dementia. Will monitor closely. If we discover any additional information we can adjust her treatment regimen accordingly. 02/24/2020 The patient was actually sitting up in the chair. She had not touched her lunch. She did try and answer questions but the answers were somewhat vague. She did not establish eye contact. We will continue to monitor. 02/25/2020 Patient was the clearest I have seen her. She is sitting up eating. She engaged in conversations. She may likely be back at her baseline. (7) Raynaud phenomenon Qualifiers: Raynaud?s-associated gangrene presence: without gangrene Qualified Code(s): I73.00 - Raynaud's syndrome without gangrene Is this a current diagnosis for this admission?: Yes Plan: 02/24/2020 The patient displays typical characteristics for ray nodes. I spoke with the nurse will try and keep the patient's hands warm. She is already on aspirin as well as her cardiac medications. We will continue to monitor. If conservative therapy is not enough we may consider additional medications. 02/25/2020 Improved. Likely the increased activity is stimulating circulation. (8) CHF (congestive heart failure) Qualifiers: Heart failure type: unspecified Heart failure chronicity: acute on chronic Qualified Code(s): I50.9 - Heart failure, unspecified Is this a current diagnosis for this admission?: Yes Plan: 02/25/2020 Per the firer locomotive crane he feels that this is mildly decompensated heart failure. There is no specification of systolic or diastolic or combined. Decompensated suggests acute on chronic. The echocardiogram is pending. No further information until the echocardiogram is completed. - Plan Summary Summary: Patient will be admitted to the medical floor where she will receive routine supportive and symptomatic cares. She will be treated with IV Zosyn and vancomycin initially. She received morphine sulfate 2 to 4 mg IV every 2 hours as needed for pain. She will receive Ativan 1 mg IV every 4 hours as needed for anxiety or restlessness. Her lower extremities will be elevated while she is in bed. CBCs, metabolic profiles and magnesium levels will be obtained as ap propriate. Patient will resume her usual home medications, as appropriate, as soon as her medication list has been verified and reconciled. She will be treated with a heart healthy diet. - Time Time Spent with patient: 15-24 minutes Medications reviewed and adjusted accordingly: Yes Anticipated discharge: Home Within: within 48 hours
--- NOTE | 2020-02-25 15:34 | CDI QUERY ---
CDI Query CDI Review: Dear Provider: To better reflect your patients severity of illness, morbidity, and resource utilization Please specify and document in the Progress Notes and Discharge Summary if you are monitoring / treating / evaluating any of the following conditions: Query Clinical indicators Please specify the type and acuity of heart failure: Type Systolic Diastolic Combined systolic and diastolic Other heart failure (please specify) Unable to determine Acuity Acute Chronic Acute on chronic Unable to determine Per Merchandising Lead Consult note: Diagnosis (1) CHF (congestive heart failure) Is this a current diagnosis for this admission?: Yes Plan: She probably has mildly decompensated congestive heart failure We will obtain echocardiogram Watch volume status Continue furosemide 20 mg daily Continue losartan Continue metoprolol Avoid added salt Limit total free water intake to less than 1 L/day especially given edema. BNP 2250 Chest X-Ray 02/22/20 21:01 IMPRESSION: Cardiac enlargement Basilar atelectasis with possible small left effusion. The terms probable, suspected, likely, possible or still to be ruled out may be used if you are unable to determine the exact nature of a condition. Thank you for your consideration, Clinical Documentation Physician Advisors GORDO Aguirre RN, BSN RN Office [phone] Office [phone]
--- NOTE | 2020-02-25 18:37 | XCELERA REPORT ---
[address] [address] Transthoracic Echocardiogram Report Name: JOSE QUIROZ Age: 84 yrs Gender: Female : 1935 Patient Status: Inpatient Patient Location: [address] [place] [address] Study Date: 02/25/2020 11:27 AM History: CAD CABG CHF Height: 66 in Weight: 188 lb BSA: 1.9 m2 Procedure: A complete two-dimensional transthoracic echocardiogram was performed (2D, M-mode, spectral and color flow Doppler). The study was technically difficult with many images being suboptimal in quality. Reason For Study: Enlarged heart Previous Evaluation: No previous studies were available. History: CAD. CHF. Ordering Physician: NASIR SHER Performed By: Mariya Peña Interpretation Summary Left ventricular systolic function is normal. The Ejection Fraction estimate is 55-60% The right ventricular systolic function is moderate to severely reduced. There is a mild to moderate amount of mitral regurgitation There is no aortic valve stenosis There is a mild to moderate amount of aortic regurgitation There is a mild to moderate amount of tricuspid regurgitation There is mild to moderate pulmonary hypertension by echo There is no pericardial effusion. MMode/2D Measurements & Calculations RVDd: 3.6 cm LVIDd: 4.2 cm FS: 43.3 % Ao root diam: 2.9 cm IVSd: 1.2 cm LVIDs: 2.4 cm EDV(Teich): 79.1 ml Ao root area: 6.4 cm2 LVPWd: 1.2 cm ESV(Teich): 19.9 ml LA dimension: 4.6 cm EF(Teich): 74.8 % Doppler Measurements & Calculations MV E max josesito: MV P1/2t max josesito: Ao V2 max: AI max josesito: 142.6 cm/sec 143.6 cm/sec 141.2 cm/sec 443.4 cm/sec MV A max josesito: MV P1/2t: 59.2 msec Ao max PG: AI max P.9 cm/sec MVA(P1/2t): 3.7 cm2 8.0 mmHg 78.6 mmHg MV E/A: 1.7 MV dec slope: AI dec slope: 453.5 cm/sec2 710.7 cm/sec2 AI P1/2t: MV dec time: 286.4 msec 0.19 sec LV V1 max PG: PA V2 max: PI end-d josesito: TR max josesito: 4.3 mmHg 71.1 cm/sec 144.6 cm/sec 347.5 cm/sec LV V1 max: PA max P.0 mmHg TR max P.2 cm/sec 48.3 mmHg LV dP/dt: 1515 mmHg/s AV P1/2t-pr_phl: MV P1/2t-pr_phl: 286.4 msec 59.2 msec Left Ventricle The left ventricle is normal in size. There is moderate concentric left ventricular hypertrophy. Left ventricular systolic function is normal. The Ejection Fraction estimate is 55-60%. Doppler measurements suggest pseudonormalized left ventricular relaxation, which is associated with grade II/IV or mild to moderate diastolic dysfunction. Regional wall motion abnormalities cannot be excluded due to limited visualization. Right Ventricle The right ventricle is mild to moderately dilated. The right ventricular systolic function is moderate to severely reduced. Atria The right atrium is moderately dilated. The left atrium is mildly dilated. Mitral Valve The mitral valve is grossly normal. Calcified mitral apparatus. There is no mitral valve stenosis. There is a mild to moderate amount of mitral regurgitation. Aortic Valve The aortic valve opens well. The aortic valve is sclerotic, but shows no functional abnormality. The aortic valve is mildly calcified. The aortic valve is trileaflet. There is no aortic valve stenosis. There is a mild to moderate amount of aortic regurgitation. Tricuspid Valve The tricuspid valve is not well visualized, but is grossly normal. There is no tricuspid stenosis. There is a mild to moderate amount of tricuspid regurgitation. Right ventricular systolic pressure is estimated to be elevated at 50-60mmHg. There is mild to moderate pulmonary hypertension by echo. Pulmonic Valve The pulmonic valve is not well seen, but is grossly normal. There is a mild amount of pulmonic regurgitation. Great Vessels The aortic root is normal size. The IVC is dilated, but has some respiratory collapse suggesting high central venous pressures. Effusions There is no pericardial effusion. : NASIR SHER Anil
[2020-02-25 20:08] LABS: VANCOMYCIN,TROUGH 6.5 ug/mL (5.0-20.0)
[2020-02-25] MEDS: VANCOMYCIN HCL 1,000 MG in DEXTROSE 5%-WATER 250 ML IV SCH (21:45)
[2020-02-25] MEDS: ATORVASTATIN CALCIUM 40 MG TABLET PO SCH (21:50)
[2020-02-26] MEDS: PIPERACILLIN SODIUM/TAZOBACTAM 3.375 GM in NORMAL SALINE 100 ML IV SCH ×3 (02:39→12:10)
[2020-02-26] MEDS: HEPARIN SOD (PORCINE) 5,000 UNIT/ML 1 ML VIAL SUBCUT SCH ×3 (05:30→22:59)
[2020-02-26] MEDS ORDERED: VANCOMYCIN HCL 750 MG in DEXTROSE 5%-WATER 250 ML IV SCH (08:00)
[2020-02-26 10:33] LABS: HEMATOCRIT 35.9 % (36.0-47.0); HEMOGLOBIN 12.3 g/dL (12.0-15.5); MEAN CORPUSCULAR HEMOGLOBIN 29.9 pg (27.0-33.4); MEAN CORPUSCULAR HGB CONC 34.4 g/dL (32.0-36.0); MEAN CORPUSCULAR VOLUME 87 fl (80-97); PLATELET COUNT 239 10^3/uL (150-450); RED BLOOD COUNT 4.12 10^6/uL (3.72-5.28); RED CELL DISTRIBUTION WIDTH 14.7 % (11.5-14.0); WHITE BLOOD COUNT 8.8 10^3/uL (4.0-10.5)
--- NOTE | 2020-02-26 10:51 | PDOC PROGRESS REPORT ---
Subjective Progress Note for:: 02/26/20 Subjective:: Patient is resting. She did have breakfast. More awake and talkative. Denies any discomfort or dyspnea. Echocardiogram done yesterday showed preserved left ventricular ejection fraction with moderate RV dysfunction Reason For Visit: BILATERAL LOWER EXTREMITY CELLULITIS,HYPONATREMIA Physical Exam Vital Signs: Temp Pulse Resp BP Pulse Ox 98.1 F 77 18 157/80 H 95 02/26/20 00:00 02/26/20 00:00 02/26/20 00:00 02/26/20 00:00 02/26/20 00:00 Intake & Output 02/25/20 02/26/20 02/27/20 06:59 06:59 06:59 Intake Total 2135 1110 Output Total 500 75 Balance 1635 1035 Weight 83.4 kg 84.8 kg General appearance: PRESENT: no acute distress, cooperative, obese, well- developed, well-nourished Head exam: PRESENT: atraumatic, normocephalic Eye exam: PRESENT: conjunctiva pink, EOMI Mouth exam: PRESENT: moist Neck exam: PRESENT: JVD Respiratory exam: PRESENT: crackles, decreased breath sounds, rales, rhonchi, symmetrical, unlabored Cardiovascular exam: PRESENT: RRR, +S1, +S2 Pulses: PRESENT: normal radial pulses GI/Abdominal exam: PRESENT: soft Rectal exam: PRESENT: deferred Extremities exam: PRESENT: pedal edema Musculoskeletal exam: PRESENT: normal inspection Neurological exam: PRESENT: alert, awake, oriented to person, oriented to place Psychiatric exam: PRESENT: appropriate affect Skin exam: PRESENT: intact, normal color, rash Results Laboratory Results: 02/26/20 10:21 02/26/20 10:21 WBC 8.8 RBC 4.12 Hgb 12.3 Hct 35.9 L MCV 87 MCH 29.9 MCHC 34.4 RDW 14.7 H Plt Count 239 02/22/20 19:03 NT-Pro-B Natriuret Pep 2250 H Impressions: Chest X-Ray 02/22/20 21:01 IMPRESSION: Cardiac enlargement Basilar atelectasis with possible small left effusion. Assessment & Plan - Diagnosis (1) CHF (congestive heart failure) Qualifiers: Heart failure type: unspecified Heart failure chronicity: acute on chronic Qualified Code(s): I50.9 - Heart failure, unspecified Is this a current diagnosis for this admission?: Yes Plan: She probably has mildly decompensated congestive heart failure Echocardiogram shows preserved left ventricular ejection fraction, moderate RV dysfunction probably in the setting of pulmonary hypertension. Watch volume status Consider increasing dose of furosemide to 40 mg daily together with potassium supplementation as the patient continues to demonstrate edema and the problem is right-sided heart failure. Continue losartan Continue metoprolol Avoid added salt Limit total free water intake to less than 1 L/day especially given edema. (2) Cellulitis Qualifiers: Site of cellulitis: extremity Site of cellulitis of extremity: lower extremity Laterality: right Qualified Code(s): L03.115 - Cellulitis of right lower limb Is this a current diagnosis for this admission?: Yes Plan: Presently receiving therapy with broad-spectrum antibiotics
[2020-02-26 10:54] LABS: BLOOD UREA NITROGEN 10 mg/dL (7-20); CALCIUM 8.2 mg/dL (8.4-10.2); GLUCOSE 118 mg/dL (75-110); POTASSIUM 4.2 mmol/L (3.6-5.0); TRIGLYCERIDES 82 mg/dL (<150)
[2020-02-26 10:59] LABS: CARBON DIOXIDE 28 mmol/L (22-30); CHLORIDE 91 mmol/L (98-107)
[2020-02-26 11:06] LABS: DIRECT LDL 38 mg/dL (<100)
[2020-02-26 11:42] LABS: ANION GAP 4 (5-19)
[2020-02-26] MEDS: LOSARTAN POTASSIUM 25 MG TABLET PO SCH (12:08)
[2020-02-26] MEDS: METOPROLOL SUCCINATE 25 MG TAB.SR.24H PO SCH ×2 (12:08→19:40)
[2020-02-26] MEDS: ASPIRIN 325 MG TABLET, ENT COATED PO SCH (12:09)
[2020-02-26] MEDS: FAMOTIDINE 20 MG TABLET PO SCH ×2 (12:09→22:59)
[2020-02-26] MEDS: DOCUSATE SODIUM 100 MG CAPSULE PO SCH ×2 (12:09→19:41)
[2020-02-26] MEDS: MAGNESIUM OXIDE 400 MG TABLET PO SCH (12:09)
[2020-02-26] MEDS: POTASSIUM CHLORIDE 10 MEQ TABLET.ER PO SCH (12:09)
[2020-02-26] MEDS: FUROSEMIDE 20 MG TABLET PO SCH (12:10)
[2020-02-26] MEDS ORDERED: FUROSEMIDE INJ/PF 40 MG/4 ML SDV IV ONE (16:25)
--- NOTE | 2020-02-26 16:39 | PDOC PROGRESS REPORT ---
Subjective Progress Note for:: 02/26/20 Subjective:: Patient denies any shortness of breath. Also some pain and tenderness in her left leg. Reason For Visit: BILATERAL LOWER EXTREMITY CELLULITIS,HYPONATREMIA Physical Exam Vital Signs: Temp Pulse Resp BP Pulse Ox 97.6 F 72 17 173/89 H 92 02/26/20 12:00 02/26/20 12:00 02/26/20 12:00 02/26/20 12:00 02/26/20 12:00 Intake & Output 02/25/20 02/26/20 02/27/20 06:59 06:59 06:59 Intake Total 2135 1110 Output Total 500 75 Balance 1635 1035 Weight 83.4 kg 84.8 kg General appearance: PRESENT: no acute distress, cooperative, hard of hearing, obese. ABSENT: mild distress Neck exam: ABSENT: JVD Respiratory exam: PRESENT: clear to auscultation fermin, unlabored. ABSENT: tachypnea, wheezes Cardiovascular exam: PRESENT: RRR, +S1, +S2. ABSENT: tachycardia GI/Abdominal exam: PRESENT: soft. ABSENT: rebound, rigid, tenderness Extremities exam: PRESENT: pedal edema Neurological exam: PRESENT: alert, awake Psychiatric exam: ABSENT: agitated, anxious Focused psych exam: ABSENT: pressured speech Skin exam: PRESENT: erythema Results Laboratory Results: 02/26/20 10:21 02/26/20 10:21 02/26/20 02/26/20 10:21 10:21 WBC 8.8 RBC 4.12 Hgb 12.3 Hct 35.9 L MCV 87 MCH 29.9 MCHC 34.4 RDW 14.7 H Plt Count 239 Sodium 123.1 L Potassium 4.2 Chloride 91 L Carbon Dioxide 28 Anion Gap 4 L BUN 10 Creatinine 0.41 L Est GFR ( Amer) > 60 Glucose 118 H Calcium 8.2 L Magnesium 1.8 Triglycerides 82 Cholesterol 80.10 LDL Cholesterol Direct 38 VLDL Cholesterol 16.0 HDL Cholesterol 30 L 02/22/20 19:03 NT-Pro-B Natriuret Pep 2250 H Impressions: Chest X-Ray 02/22/20 21:01 IMPRESSION: Cardiac enlargement Basilar atelectasis with possible small left effusion. Assessment and Plan - Diagnosis (1) Cellulitis of right lower extremity Is this a current diagnosis for this admission?: Yes Plan: Patient has been on broad-spectrum IV antibiotics for 4 days now. I will go a head and de-escalate the patient's antibiotics to oral as leukocytosis has resolved today. Will start patient on Bactrim. (2) Acute on chronic diastolic (congestive) heart failure Is this a current diagnosis for this admission?: Yes Plan: Patient's echo seems to show evidence of right heart failure with pulmonary hypertension and also a component of grade 2 diastolic heart failure. We will increase Lasix dose to 40 mg IV. Losartan dose increased as hypertension still uncontrolled. 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 However hyponatremia persist despite adequate fluid restriction. We will try giving some IV Lasix today to see if any improvement to measure BMP in the morning. (4) Dementia Qualifiers: Dementia type: unspecified type Dementia behavioral disturbance: without behavioral disturbance Qualified Code(s): F03.90 - Unspecified dementia without behavioral disturbance Is this a current diagnosis for this admission?: Yes Plan: Able to engage in conversations but very hard of hearing. Supportive care. - Time Time Spent with patient: 15-24 minutes
[2020-02-26] MEDS ORDERED: LOSARTAN POTASSIUM 25 MG TABLET PO SCH (18:00)
[2020-02-26] MEDS: LOSARTAN POTASSIUM 50 MG TABLET PO SCH (19:40)
[2020-02-26] MEDS: ATORVASTATIN CALCIUM 40 MG TABLET PO SCH (22:59)
[2020-02-26] MEDS: SULFAMETHOXAZOLE/TRIMETHOPRIM 800-160 MG TABLET PO SCH (23:00)
[2020-02-27] MEDS: LORAZEPAM INJ 2 MG/1 ML VIAL IV PRN ×3 (03:03→17:53)
[2020-02-27 05:59] LABS: ANION GAP 6 (5-19); BLOOD UREA NITROGEN 11 mg/dL (7-20); CALCIUM 8.4 mg/dL (8.4-10.2); CARBON DIOXIDE 25 mmol/L (22-30); CHLORIDE 93 mmol/L (98-107); GLUCOSE 111 mg/dL (75-110); POTASSIUM 4.9 mmol/L (3.6-5.0)
[2020-02-27] MEDS: HEPARIN SOD (PORCINE) 5,000 UNIT/ML 1 ML VIAL SUBCUT SCH ×3 (06:06→23:37)
[2020-02-27] MEDS ORDERED: IPRATROPIUM/ALBUTEROL 0.5-2.5 MG/3 ML AMPUL NEB PRN (09:40)
[2020-02-27] MEDS: MAGNESIUM OXIDE 400 MG TABLET PO SCH (09:54)
[2020-02-27] MEDS: FAMOTIDINE 20 MG TABLET PO SCH ×2 (09:54→23:38)
[2020-02-27] MEDS: ASPIRIN 325 MG TABLET, ENT COATED PO SCH (09:54)
[2020-02-27] MEDS: SULFAMETHOXAZOLE/TRIMETHOPRIM 800-160 MG TABLET PO SCH ×2 (09:54→23:39)
[2020-02-27] MEDS: DOCUSATE SODIUM 100 MG CAPSULE PO SCH ×2 (09:55→17:52)
[2020-02-27] MEDS: CARVEDILOL 12.5 MG TABLET PO SCH ×2 (09:55→23:38)
[2020-02-27] MEDS: POTASSIUM CHLORIDE 10 MEQ TABLET.ER PO SCH (09:55)
[2020-02-27] MEDS ORDERED: SODIUM CHLORIDE 1 GM TABLET PO SCH (10:00)
[2020-02-27] MEDS ORDERED: FUROSEMIDE INJ/PF 40 MG/4 ML SDV IV SCH (10:00)
--- NOTE | 2020-02-27 11:46 | PDOC CONSULTATION ---
Consultation Consult Date: 02/27/20 Provider Consulted: Brian HERNANDEZ Consult reason:: Hyponatremia History of Present Illness Admission Date/PCP: 02/22/20 23:06 SAVITA GOETZ MD History of Present Illness: JOSE QUIROZ is a 84 year old female Was seen today in the hospital at the request of Dr. Hester for evaluation of hyponatremia. She is currently confused and disoriented and pulling at her clothes. She has a sitter watching over her. She is unable to give any meaningful history. Therefore chart review was done and discussions were done with the treating nurse as well as with the spitalist.Apparently she has got a background history of hypertension and dementia and was admitted with a history of increasing lower extremity edema and cellulitis in the setting of venous stasis changes. Cardiological evaluations have revealed that she has mild diastolic LV failure along with moderate right heart failure.She has been begun on antibiotics and diuretics. 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 Past Medical History Cardiac Medical History: Reports: Coronary Artery Disease, Hypertension-primary, Myocardial Infarction - 2009 Pulmonary Medical History: Denies: Asthma, Chronic Obstructive Pulmonary Disease (COPD) EENT Medical History: Reports: Cataracts Denies: Ears - Hearing aids Neurological Medical History: Denies: Hemorrhagic CVA, Ischemic CVA, Seizures Endocrine Medical History: Denies: Diabetes Mellitus Type 1, Diabetes Mellitus Type 2, Hyperthyroidism, Hypothyroidism Complications of Diabetes: Reports: None Renal/ Medical History: Denies: Nephrolithiasis Malignancy Medical History: Reports: None GI Medical History: Denies: Cirrhosis, Crohn's Disease, Hepatitis, Hiatal Hernia, Ulcerative Colitis Musculoskeltal Medical History: Denies: Arthritis, Gout Skin Medical History: Reports: Other - Chronic venous stasis bilateral lower extremities Denies: Eczema, Psoriasis Psychiatric Medical History: Reports: Dementia Denies: Alcohol Dependency, Substance Abuse, Tobacco Dependency Traumatic Medical History: Reports: None Infectious Medical History: Reports: None Past Surgical History Past Surgical History: Reports: Cardiac Catheterization - With angioplasty, Coronary Artery Bypass Graft, Other - Bilateral cataract surgery, partial colectomy Denies: Hysterectomy, Mastectomy, Pacemaker Social History Lives with: Family Smoking Status: Former Smoker Electronic Cigarette use?: No Frequency of Alcohol Use: None Hx Recreational Drug Use: No Drugs: None Hx Prescription Drug Abuse: No - Advance Directive Resuscitation Status: Full Code Family History Parental Family History Reviewed: No Children Family History Reviewed: No Sibling(s) Family History Reviewed.: No Medication/Allergy Home Medications: Aspirin [Ecotrin 325 mg EC Tablet] 325 mg PO DAILY 02/22/20 Atorvastatin Calcium [Lipitor 40 mg Tablet] 40 mg PO QHS 02/22/20 Furosemide [Lasix] 20 mg PO Q12 02/22/20 Magnesium Oxide 400 mg PO DAILY 02/22/20 Potassium Chloride 8 meq PO DAILY 02/22/20 Cephalexin Monohydrate [Keflex 500 mg Capsule] 500 mg PO Q8 MDD FOR 7 DAYS 02/23/20 Ciclopirox/Skin Cleanser No.28 [Ciclodan 0.77% Cream Kit] 1 applic TOP BID 02/23/20 Lactobacillus Acidophilus [Florajen] 460 mg PO DAILY 02/23/20 Metoprolol Tartrate [Lopressor 25 mg Tablet] 25 mg PO BID 02/23/20 Allergies/Adverse Reactions: Tetanus Vaccines and Toxoid [Tetanus] Allergy (Mild, Verified 02/22/20 18:39) UNK Review of Systems ROS unobtainable: Due to mental status Physical Exam Vital Signs: Temp Pulse Resp BP Pulse Ox 97.7 F 76 20 156/61 H 95 02/27/20 08:00 02/27/20 08:00 02/27/20 08:00 02/27/20 08:00 02/27/20 08:00 Intake & Output 02/26/20 02/27/20 02/28/20 06:59 06:59 06:59 Intake Total 1110 516 Output Total 75 Balance 1035 516 Weight 84.8 kg 84 kg General appearance: PRESENT: no acute distress Eye exam: PRESENT: EOMI, PERRLA. ABSENT: scleral icterus Ear exam: PRESENT: normal external ear exam Mouth exam: PRESENT: neck supple Neck exam: ABSENT: meningismus, tenderness, thyromegaly, tracheal deviation Respiratory exam: PRESENT: clear to auscultation fermin, decreased breath sounds. ABSENT: crackles Cardiovascular exam: PRESENT: +S1, +S2 GI/Abdominal exam: PRESENT: normal bowel sounds, soft. ABSENT: organomegaly, tenderness Extremities exam: PRESENT: pedal edema - Venous stasis changes. She has bandages wrapping abouve the ankles on both lower extremities. Neurological exam: PRESENT: altered Skin exam: PRESENT: mottled - Of venous stasis changes in both lower extremiti es.. ABSENT: rash, urticaria, vesicles Results Laboratory Results: 02/26/20 10:21 02/27/20 05:27 02/26/20 02/27/20 10:21 05:27 Sodium 123.6 L Potassium 4.9 Chloride 93 L Carbon Dioxide 25 Anion Gap 4 L 6 BUN 11 Creatinine 0.35 L Est GFR ( Amer) > 60 Glucose 111 H Calcium 8.4 Magnesium 1.9 02/22/20 19:03 NT-Pro-B Natriuret Pep 2250 H Impressions: Chest X-Ray 02/22/20 21:01 IMPRESSION: Cardiac enlargement Basilar atelectasis with possible small left effusion. Assessment & Plan - Diagnosis (1) Acute on chronic diastolic (congestive) heart failure Is this a current diagnosis for this admission?: Yes Plan: Looks like she has got predominant right heart failure. I would cannot continue on gentle diuresis. (2) Cellulitis Qualifiers: Site of cellulitis: extremity Site of cellulitis of extremity: lower extremity Laterality: right Qualified Code(s): L03.115 - Cellulitis of right lower limb Is this a current diagnosis for this admission?: Yes Plan: Was on IV antibiotics and now on Bactrim. (3) Chronic venous stasis dermatitis of both lower extremities Is this a current diagnosis for this admission?: Yes Plan: Background of cor pulmonale. (4) Hyponatremia Is this a current diagnosis for this admission?: Yes Plan: History of this is acute or chronic. She has a diagnosis of SIADH. I would recommend strict fluid restriction to 800-1000 cc/day. Continue on gentle diuretics and I would convert her Lasix to 20 twice daily. I would DC the sodium chloride tablets which might be rather counterproductive in a patient with heart failure at this point. Later on we shall see if she needs to have judicious use of tolvaptan. (5) Dementia Qualifiers: Dementia type: unspecified type Dementia behavioral disturbance: without behavioral disturbance Qualified Code(s): F03.90 - Unspecified dementia without behavioral disturbance Is this a current diagnosis for this admission?: Yes Plan: Apparently baseline. No history to indicate that these mental status changes are rather new.
[2020-02-27] MEDS: FUROSEMIDE INJ/PF 20 MG/2 ML SDV IV SCH ×2 (12:52→23:37)
[2020-02-27] MEDS: ACETAMINOPHEN 325 MG TABLET PO PRN ×2 (12:58→17:51)
--- NOTE | 2020-02-27 13:07 | PDOC PROGRESS REPORT ---
Subjective Progress Note for:: 02/27/20 Subjective:: Today patient denies any shortness of breath. However she was noted to have some wheezing. Patient unable to give me any significant information about her family whereabouts. Patient also very hard of hearing and hearing aids not available. Uncertain if hearing aids were brought in with patient at time of admission. Reason For Visit: BILATERAL LOWER EXTREMITY CELLULITIS,HYPONATREMIA Physical Exam Vital Signs: Temp Pulse Resp BP Pulse Ox 97.7 F 69 20 117/42 L 97 02/27/20 11:01 02/27/20 12:50 02/27/20 12:50 02/27/20 11:01 02/27/20 12:50 Intake & Output 02/26/20 02/27/20 02/28/20 06:59 06:59 06:59 Intake Total 1110 516 120 Output Total 75 Balance 1035 516 120 Weight 84.8 kg 84 kg General appearance: PRESENT: no acute distress, cooperative, hard of hearing - Very hard of hearing, obese Neck exam: ABSENT: JVD Respiratory exam: PRESENT: unlabored, wheezes. ABSENT: accessory muscle use, stridor, tachypnea Cardiovascular exam: PRESENT: RRR, +S1, +S2. ABSENT: tachycardia GI/Abdominal exam: PRESENT: soft. ABSENT: rebound, rigid, tenderness Neurological exam: PRESENT: alert, awake, oriented to person, oriented to place Psychiatric exam: ABSENT: agitated Focused psych exam: ABSENT: pressured speech Results Laboratory Results: 02/26/20 10:21 02/27/20 05:27 02/27/20 05:27 Sodium 123.6 L Potassium 4.9 Chloride 93 L Carbon Dioxide 25 Anion Gap 6 BUN 11 Creatinine 0.35 L Est GFR ( Amer) > 60 Glucose 111 H Calcium 8.4 Magnesium 1.9 02/22/20 19:03 NT-Pro-B Natriuret Pep 2250 H Impressions: Chest X-Ray 02/22/20 21:01 IMPRESSION: Cardiac enlargement Basilar atelectasis with possible small left effusion. Assessment and Plan - Diagnosis (1) Cellulitis of right lower extremity Is this a current diagnosis for this admission?: Yes Plan: Patient received broad-spectrum IV antibiotics for 4 days. Continue p.o. Bactrim for 7 more days to complete 12 days of treatment. (2) Acute on chronic diastolic (congestive) heart failure Is this a current diagnosis for this admission?: Yes Plan: Patient's echo seems to show evidence of right heart failure with pulmonary hypertension and also a component of grade 2 diastolic heart failure. Continue losartan Lasix (3) Hyponatremia Is this a current diagnosis for this admission?: Yes Plan: Patient was suspected to have SIADH given increased urine osmolarity and sodium level. TSH and a.m. cortisol are appropriate. However hyponatremia persisted despite receiving fluids and maintaining positive fluid balance, persisted despite fluid restriction yesterday as well as Lasix administration. No improvement in sodium level today. Nephrology consulted and recommending increasing Lasix to 20 mg twice daily. Holding off on sodium tablets given CHF. (4) Dementia Qualifiers: Dementia type: unspecified type Dementia behavioral disturbance: without behavioral disturbance Qualified Code(s): F03.90 - Unspecified dementia without behavioral disturbance Is this a current diagnosis for this admission?: Yes Plan: Able to engage in conversations but very hard of hearing. Supportive care. Currently working on establishing contact with patient's family as the only phone number documented on our records is not working. Discharge planning working on this. (5) Chronic venous stasis dermatitis of both lower extremities Is this a current diagnosis for this admission?: Yes Plan: Leg elevation, USMAN hose stockings (6) Wheezing Is this a current diagnosis for this admission?: Yes Plan: No noted documentation of asthma/COPD in chart but actively wheezing today. Will give neb treatments. Hold off on steroids. - Time Time Spent with patient: 15-24 minutes
[2020-02-27 15:29] LABS: ANION GAP 5 (5-19); BLOOD UREA NITROGEN 13 mg/dL (7-20); CALCIUM 7.9 mg/dL (8.4-10.2); CARBON DIOXIDE 29 mmol/L (22-30); CHLORIDE 88 mmol/L (98-107); GLUCOSE 116 mg/dL (75-110); POTASSIUM 4.6 mmol/L (3.6-5.0)
[2020-02-27] MEDS: LOSARTAN POTASSIUM 50 MG TABLET PO SCH (17:51)
[2020-02-27] MEDS: TOLVAPTAN 15 MG TABLET PO SCH (18:15)
--- NOTE | 2020-02-27 19:16 | RADIOLOGY REPORT (SQ) ---
EXAM DESCRIPTION: VENOUS BILATERAL LOWER IMAGES COMPLETED DATE/TIME: 02/27/2020 7:02 pm REASON FOR STUDY: LE SWELLING AND TENDERNESS COMPARISON: None. TECHNIQUE: Dynamic and static correa scale and color images acquired of both lower extremity venous sy stems. Selected spectral images acquired with additional compression and augmentation maneuvers. Imag es stored on PACS. LIMITATIONS: The examination is difficult due to patient being uncooperative and extremity swelling. FINDINGS: RIGHT LEG COMMON FEMORAL AND FEMORAL: Normal phasicity, compression and augmentation. No visualized echogenic m aterial on correa scale. No defects on color images. POPLITEAL: Normal compression and augmentation. No visualized echogenic material on correa scale. No de fects on color images. CALF VESSELS: Peroneal vein not visualized due to swelling. Normal compression and augmentation. No visualized echogenic material on correa scale. No defects on color image. GSV AND SSV: Normal compression. No visualized echogenic material on correa scale. No defects on color images. ANY DEEP VENOUS INSUFFICIENCY: Not evaluated. ANY EVIDENCE OF POPLITEAL CYST: No. OTHER: No other significant finding. LEFT LEG COMMON FEMORAL AND FEMORAL: Normal phasicity, compression and augmentation. No visualized echogenic m aterial on correa scale. No defects on color images. POPLITEAL: Normal compression and augmentation. No visualized echogenic material on correa scale. No de fects on color images. CALF VESSELS: Peroneal vein not visualized due to swelling. Normal compression and augmentation. No visualized echogenic material on correa scale. No defects on color images. GSV AND SSV: Normal compression. No visualized echogenic material on correa scale. No defects on color images. ANY DEEP VENOUS INSUFFICIENCY: Not evaluated. ANY EVIDENCE POPLITEAL CYST: No. OTHER: No other significant finding. IMPRESSION: 1. Examination is limited as above. NO EVIDENCE DVT OR SVT IN EITHER LOWER EXTREMITY ON THE OBTAINED STUDY. COMMENT: 1. The results of this examination were discussed with the patient's nurse on 02/27/2020. TECHNICAL DOCUMENTATION: JOB ID: [id number] [employer]- All Rights Reserved Reading location - IP/workstation name: [email or web address]
[2020-02-27] MEDS: ATORVASTATIN CALCIUM 40 MG TABLET PO SCH (23:38)
[2020-02-28] MEDS: LOSARTAN POTASSIUM 50 MG TABLET PO SCH ×3 (05:43→17:14)
[2020-02-28] MEDS: LORAZEPAM INJ 2 MG/1 ML VIAL IV PRN (05:46)
[2020-02-28] MEDS: HEPARIN SOD (PORCINE) 5,000 UNIT/ML 1 ML VIAL SUBCUT SCH ×3 (05:57→23:07)
[2020-02-28 06:30] LABS: BLOOD UREA NITROGEN 12 mg/dL (7-20); CALCIUM 8.4 mg/dL (8.4-10.2); CARBON DIOXIDE 32 mmol/L (22-30); GLUCOSE 98 mg/dL (75-110); POTASSIUM 4.6 mmol/L (3.6-5.0)
[2020-02-28 06:35] LABS: ANION GAP 5 (5-19); CHLORIDE 89 mmol/L (98-107)
[2020-02-28] MEDS: FUROSEMIDE INJ/PF 20 MG/2 ML SDV IV SCH ×2 (10:10→23:07)
[2020-02-28] MEDS: BACITRACIN ZINC OINTMENT 15 GM TP SCH (10:10)
--- NOTE | 2020-02-28 12:02 | PDOC PROGRESS REPORT ---
Subjective Progress Note for:: 02/28/20 Subjective:: Patient seemed very drowsy this morning and pretty much just moaning. Patient had received Ativan 5 AM today likely contributing to mental status. Ativan has been discontinued Reason For Visit: BILATERAL LOWER EXTREMITY CELLULITIS,HYPONATREMIA Physical Exam Vital Signs: Temp Pulse Resp BP Pulse Ox 97.5 F 78 19 155/77 H 92 02/28/20 07:41 02/28/20 07:41 02/28/20 07:41 02/28/20 07:41 02/28/20 07:41 Intake & Output 02/27/20 02/28/20 02/29/20 06:59 06:59 06:59 Intake Total 516 480 Balance 516 480 Weight 84 kg 84.9 kg General appearance: PRESENT: hard of hearing, obese, other - Very drowsy. ABSENT: disheveled Mouth exam: PRESENT: neck supple Neck exam: ABSENT: JVD Respiratory exam: PRESENT: symmetrical, unlabored, wheezes. ABSENT: crackles, tachypnea Cardiovascular exam: PRESENT: RRR, +S1, +S2. ABSENT: tachycardia GI/Abdominal exam: PRESENT: soft. ABSENT: rebound, rigid, tenderness Extremities exam: PRESENT: calf tenderness, pedal edema, +1 edema, other - Bilateral venous stasis ulcers tenderness and erythema but no purulence or drainage or necrotic tissue. ABSENT: +2 edema Musculoskeletal exam: PRESENT: tenderness - Bilateral lower extremity Neurological exam: PRESENT: other - Drowsy but protecting airway easily. ABSENT: alert, awake Results Laboratory Results: 02/26/20 10:21 02/28/20 05:56 02/27/20 02/28/20 15:00 05:56 Sodium 121.9 L 126.0 L Potassium 4.6 4.6 Chloride 88 L 89 L Carbon Dioxide 29 32 H Anion Gap 5 5 BUN 13 12 Creatinine 0.41 L 0.42 L Est GFR ( Amer) > 60 > 60 Glucose 116 H 98 Calcium 7.9 L 8.4 02/22/20 22:40 Blood Blood Culture - Final NO GROWTH IN 5 DAYS 02/22/20 19:03 Blood Blood Culture - Final NO GROWTH IN 5 DAYS 02/22/20 19:03 NT-Pro-B Natriuret Pep 2250 H Impressions: Chest X-Ray 02/22/20 21:01 IMPRESSION: Cardiac enlargement Basilar atelectasis with possible small left effusion. Venous Doppler Study 02/27/20 00:00 IMPRESSION: 1. Examination is limited as above. NO EVIDENCE DVT OR SVT IN EITHER LOWER EXTREMITY ON THE OBTAINED STUDY. Assessment and Plan - Diagnosis (1) Cellulitis of right lower extremity Is this a current diagnosis for this admission?: Yes Plan: Patient received broad-spectrum IV antibiotics for 4 days initially then transitioned to Bactrim. Continue p.o. Bactrim for 6 more days to complete 12 days of treatment. (2) Acute metabolic encephalopathy Is this a current diagnosis for this admission?: Yes Plan: Very somnolent this morning and borderline lethargic. However seems to awaken easily to touch. Did receive Ativan at 5 AM on some yesterday evening. Ativan orders discontinued. Monitor mental status. 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 TSH and a.m. cortisol are appropriate. However hyponatremia persisted despite receiving fluids and maintaining positive fluid balance, persisted despite fluid restriction yesterday as well as Lasix administration. Nephrology following. Tolvaptan started yesterday with improvement of sodium level today. Continue with tolvaptan. (4) Acute on chronic diastolic (congestive) heart failure Is this a current diagnosis for this admission?: Yes Plan: Patient's echo seems to show evidence of right heart failure with pulmonary hypertension and also a component of grade 2 diastolic heart failure. Continue losartan and Lasix (5) Dementia Qualifiers: Dementia type: unspecified type Dementia behavioral disturbance: without behavioral disturbance Qualified Code(s): F03.90 - Unspecified dementia without behavioral disturbance Is this a current diagnosis for this admission?: Yes Plan: I discussed with patient's son regarding patient's cognition issues as well as debility. Patient's son requesting that he prefers for patient to be discharged home with home health rather than to SNF because he feels that if she goes to any nursing facility, she will stop putting an effort to care for herself and waste away. I have discussed that if patient ends up being discharged home, she would likely not be able to leave alone. Physical therapy will continue to evaluate patient to work with patient. (6) Venous stasis ulcers of both lower extremities Is this a current diagnosis for this admission?: Yes Plan: Chronic and painful to touch. Leg elevation and compression stockings. Venous Dopplers are negative for any DVT. (7) Wheezing Is this a current diagnosis for this admission?: Yes Plan: No noted documentation of asthma/COPD in chart but actively wheezing today. Will give neb treatments. Hold off on steroids. - Time Time Spent with patient: 15-24 minutes
[2020-02-28] MEDS: DOCUSATE SODIUM 100 MG CAPSULE PO SCH ×2 (12:04→17:14)
[2020-02-28] MEDS: ASPIRIN 325 MG TABLET, ENT COATED PO SCH (12:04)
[2020-02-28] MEDS: MAGNESIUM OXIDE 400 MG TABLET PO SCH (12:04)
[2020-02-28] MEDS: SULFAMETHOXAZOLE/TRIMETHOPRIM 800-160 MG TABLET PO SCH ×2 (12:04→23:07)
[2020-02-28] MEDS: CARVEDILOL 12.5 MG TABLET PO SCH ×2 (12:04→23:07)
[2020-02-28] MEDS: FAMOTIDINE 20 MG TABLET PO SCH ×2 (12:04→23:07)
[2020-02-28] MEDS: TOLVAPTAN 15 MG TABLET PO SCH (12:04)
[2020-02-28] MEDS: IPRATROPIUM/ALBUTEROL 0.5-2.5 MG/3 ML AMPUL NEB SCH ×2 (14:26→20:13)
[2020-02-28] MEDS: ATORVASTATIN CALCIUM 40 MG TABLET PO SCH (23:07)
[2020-02-29] MEDS: IPRATROPIUM/ALBUTEROL 0.5-2.5 MG/3 ML AMPUL NEB SCH ×4 (02:08→19:47)
[2020-02-29 05:40] LABS: HEMATOCRIT 34.8 % (36.0-47.0); HEMOGLOBIN 12.1 g/dL (12.0-15.5); MEAN CORPUSCULAR HEMOGLOBIN 29.6 pg (27.0-33.4); MEAN CORPUSCULAR HGB CONC 34.8 g/dL (32.0-36.0); MEAN CORPUSCULAR VOLUME 85 fl (80-97); PLATELET COUNT 275 10^3/uL (150-450); RED BLOOD COUNT 4.09 10^6/uL (3.72-5.28); RED CELL DISTRIBUTION WIDTH 14.5 % (11.5-14.0); WHITE BLOOD COUNT 7.3 10^3/uL (4.0-10.5)
[2020-02-29 05:54] LABS: BLOOD UREA NITROGEN 15 mg/dL (7-20); CALCIUM 8.2 mg/dL (8.4-10.2); GLUCOSE 102 mg/dL (75-110); POTASSIUM 4.4 mmol/L (3.6-5.0)
[2020-02-29] MEDS: HEPARIN SOD (PORCINE) 5,000 UNIT/ML 1 ML VIAL SUBCUT SCH ×3 (05:59→21:47)
[2020-02-29] MEDS: LOSARTAN POTASSIUM 50 MG TABLET PO SCH ×2 (05:59→17:15)
[2020-02-29 06:07] LABS: ANION GAP 3 (5-19); CARBON DIOXIDE 35 mmol/L (22-30); CHLORIDE 91 mmol/L (98-107)
[2020-02-29] MEDS: MAGNESIUM OXIDE 400 MG TABLET PO SCH (10:09)
[2020-02-29] MEDS: FUROSEMIDE 20 MG TABLET PO SCH ×2 (10:09→17:15)
[2020-02-29] MEDS: DOCUSATE SODIUM 100 MG CAPSULE PO SCH ×2 (10:09→17:15)
[2020-02-29] MEDS: ASPIRIN 325 MG TABLET, ENT COATED PO SCH (10:09)
[2020-02-29] MEDS: TOLVAPTAN 15 MG TABLET PO SCH (10:09)
[2020-02-29] MEDS: FAMOTIDINE 20 MG TABLET PO SCH ×2 (10:09→21:46)
[2020-02-29] MEDS: CARVEDILOL 12.5 MG TABLET PO SCH ×2 (10:09→21:46)
[2020-02-29] MEDS: SULFAMETHOXAZOLE/TRIMETHOPRIM 800-160 MG TABLET PO SCH ×2 (10:09→21:46)
[2020-02-29] MEDS: BACITRACIN ZINC OINTMENT 15 GM TP SCH (10:10)
--- NOTE | 2020-02-29 11:45 | PDOC PROGRESS REPORT ---
Subjective Progress Note for:: 02/29/20 Subjective:: Patient today denies any shortness of breath or chest pain. She is laying down in bed very hard of hearing but able to respond to questions by when shouted to. Reason For Visit: BILATERAL LOWER EXTREMITY CELLULITIS,HYPONATREMIA Physical Exam Vital Signs: Temp Pulse Resp BP Pulse Ox 97.6 F 77 18 144/55 H 92 02/29/20 07:45 02/29/20 07:53 02/29/20 07:53 02/29/20 07:45 02/29/20 07:53 Intake & Output 02/28/20 02/29/20 03/01/20 06:59 06:59 06:59 Intake Total 480 50 Output Total 1450 Balance 480 -1400 Weight 84.9 kg 79.5 kg General appearance: PRESENT: no acute distress, cooperative, hard of hearing, obese Neck exam: ABSENT: JVD Respiratory exam: PRESENT: symmetrical, tachypnea - Mild, unlabored. ABSENT: accessory muscle use GI/Abdominal exam: PRESENT: soft. ABSENT: rebound, rigid, tenderness Neurological exam: PRESENT: alert, awake Results Laboratory Results: 02/29/20 05:06 02/29/20 05:06 02/29/20 02/29/20 05:06 05:06 WBC 7.3 RBC 4.09 Hgb 12.1 Hct 34.8 L MCV 85 MCH 29.6 MCHC 34.8 RDW 14.5 H Plt Count 275 Sodium 128.8 L Potassium 4.4 Chloride 91 L Carbon Dioxide 35 H Anion Gap 3 L BUN 15 Creatinine 0.45 L Est GFR ( Amer) > 60 Glucose 102 Calcium 8.2 L 02/22/20 19:03 NT-Pro-B Natriuret Pep 2250 H Impressions: Chest X-Ray 02/22/20 21:01 IMPRESSION: Cardiac enlargement Basilar atelectasis with possible small left effusion. Venous Doppler Study 02/27/20 00:00 IMPRESSION: 1. Examination is limited as above. NO EVIDENCE DVT OR SVT IN EITHER LOWER EXTREMITY ON THE OBTAINED STUDY. Assessment and Plan - Diagnosis (1) Cellulitis of right lower extremity Is this a current diagnosis for this admission?: Yes Plan: Patient received broad-spectrum IV antibiotics for 4 days initially then transitioned to Bactrim. Continue p.o. Bactrim for 5 more days to complete 12 days of treatment. (2) Acute metabolic encephalopathy Is this a current diagnosis for this admission?: Yes Plan: Lethargy has resolved after discontinuation of Ativan yesterday. Toxic metabolic encephalopathy seems to have resolved. 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 TSH and a.m. cortisol are appropriate. However hyponatremia persisted despite receiving fluids and maintaining positive fluid balance, persisted despite fluid restriction yesterday as well as Lasix administration. Nephrology following. Will continue with tolvaptan. Sodium improving to 128 today. Anticipate discharge tomorrow if sodium is over 130. (4) Acute on chronic diastolic (congestive) heart failure Is this a current diagnosis for this admission?: Yes Plan: Patient's echo seems to show evidence of right heart failure with pulmonary hypertension and also a component of grade 2 diastolic heart failure. Continue losartan and Lasix. Lasix switched to p.o. today from IV. (5) Dementia Qualifiers: Dementia type: unspecified type Dementia behavioral disturbance: without behavioral disturbance Qualified Code(s): F03.90 - Unspecified dementia without behavioral disturbance Is this a current diagnosis for this admission?: Yes Plan: I discussed with patient's son regarding patient's cognition issues as well as debility. Patient's son requesting that he prefers for patient to be discharged home with home health rather than to SNF because he feels that if she goes to any nursing facility, she will stop putting an effort to care for herself and waste away. I have discussed that if patient ends up being discharged home, she would likely not be able to live alone. Physical therapy was unable to work with patient yesterday due to somnolence. Today patient is more awake and physical therapy will be recontacted to work with patient (6) Venous stasis ulcers of both lower extremities Is this a current diagnosis for this admission?: Yes Plan: Chronic and painful to touch. Leg elevation and compression stockings. Venous Dopplers are negative for any DVT. (7) Wheezing Is this a current diagnosis for this admission?: Yes Plan: No noted documentation of asthma/COPD in chart. Wheezing seems to have improved.. Continue neb treatments. Hold off on steroids. - Time Time Spent with patient: Less than 15 minutes
[2020-02-29 12:40] LABS: ARTERIAL BLOOD FIO2 21%; ARTERIAL BLOOD H2CO3 1.17 mmol/L (1.05-1.35); ARTERIAL BLOOD HCO3 29.6 mmol/L (20-24); ARTERIAL BLOOD O2 SATURATION 96.5 % (94-98); ARTERIAL BLOOD PCO2 38.9 mmHg (35-45); ARTERIAL BLOOD PO2 78.2 mmHg (80-100); ARTERIAL BLOOD TOTAL CO2 30.8 mmol/L (21-25)
[2020-02-29] MEDS: ATORVASTATIN CALCIUM 40 MG TABLET PO SCH (21:46)
[2020-03-01] MEDS: IPRATROPIUM/ALBUTEROL 0.5-2.5 MG/3 ML AMPUL NEB SCH ×3 (01:47→13:49)
[2020-03-01] MEDS: LOSARTAN POTASSIUM 50 MG TABLET PO SCH (06:11)
[2020-03-01] MEDS: HEPARIN SOD (PORCINE) 5,000 UNIT/ML 1 ML VIAL SUBCUT SCH ×2 (06:11→14:00)
[2020-03-01] MEDS: MAGNESIUM OXIDE 400 MG TABLET PO SCH (09:58)
[2020-03-01] MEDS: FAMOTIDINE 20 MG TABLET PO SCH (09:59)
[2020-03-01] MEDS: FUROSEMIDE 20 MG TABLET PO SCH (09:59)
[2020-03-01] MEDS: SULFAMETHOXAZOLE/TRIMETHOPRIM 800-160 MG TABLET PO SCH (10:00)
[2020-03-01] MEDS: DOCUSATE SODIUM 100 MG CAPSULE PO SCH (10:00)
[2020-03-01] MEDS: CARVEDILOL 12.5 MG TABLET PO SCH (10:00)
[2020-03-01] MEDS: BACITRACIN ZINC OINTMENT 15 GM TP SCH (10:00)
[2020-03-01] MEDS: ASPIRIN 325 MG TABLET, ENT COATED PO SCH (10:02)
[2020-03-01] MEDS: TOLVAPTAN 15 MG TABLET PO SCH (10:02)
[2020-03-01 10:28] LABS: ANION GAP 7 (5-19); BLOOD UREA NITROGEN 14 mg/dL (7-20); CALCIUM 8.2 mg/dL (8.4-10.2); CARBON DIOXIDE 28 mmol/L (22-30); CHLORIDE 94 mmol/L (98-107); GLUCOSE 118 mg/dL (75-110); POTASSIUM 4.2 mmol/L (3.6-5.0)
--- NOTE | 2020-03-01 11:14 | PDOC DISCHARGE SUMMARY ---
Impression - Admit/DC Date/PCP Admission Date/Primary Care Provider: 02/22/20 23:06 SAVITA GOETZ MD Discharge Date: 03/01/20 - Discharge Diagnosis (1) Cellulitis of right lower extremity Is this a current diagnosis for this admission?: Yes (2) Acute metabolic encephalopathy Is this a current diagnosis for this admission?: Yes (3) Hyponatremia Is this a current diagnosis for this admission?: Yes (4) Acute on chronic diastolic (congestive) heart failure Is this a current diagnosis for this admission?: Yes (5) Dementia Is this a current diagnosis for this admission?: Yes (6) Venous stasis ulcers of both lower extremities Is this a current diagnosis for this admission?: Yes (7) Wheezing Is this a current diagnosis for this admission?: Yes - Additional Information Resuscitation Status: Full Code Discharge Diet: Cardiac Discharge Activity: Activity As Tolerated, Balance Activity w/Rest, Weigh Daily Referrals: Wound Care [Provider Group] ABHAY JUNG MD [ACTIVE STAFF] - SAVITA GOETZ MD [Primary Care Provider] - Prescriptions: Carvedilol [Coreg 12.5 mg Tablet] 12.5 mg PO Q12 30 Days tablet Losartan Potassium [Cozaar 50 mg Tablet] 50 mg PO Q12A #60 tablet Sulfamethoxazole/Trimethoprim [Septra-Ds 800-160 mg Tablet] 1 tab PO Q12 4 Days tablet Home Medications: Aspirin [Ecotrin 325 mg EC Tablet] 325 mg PO DAILY 02/22/20 Atorvastatin Calcium [Lipitor 40 mg Tablet] 40 mg PO QHS 02/22/20 Furosemide [Lasix] 20 mg PO Q12 02/22/20 Magnesium Oxide 400 mg PO DAILY 02/22/20 Potassium Chloride 8 meq PO DAILY 02/22/20 Ciclopirox/Skin Cleanser No.28 [Ciclodan 0.77% Cream Kit] 1 applic TOP BID 02/23/20 Lactobacillus Acidophilus [Florajen] 460 mg PO DAILY 02/23/20 Carvedilol [Coreg 12.5 mg Tablet] 12.5 mg PO Q12 30 Days tablet 03/01/20 Losartan Potassium [Cozaar 50 mg Tablet] 50 mg PO Q12A #60 tablet 03/01/20 Sulfamethoxazole/Trimethoprim [Septra-Ds 800-160 mg Tablet] 1 tab PO Q12 4 Days tablet 03/01/20 History of Present Illiness History of Present Illness: According to admitting provider, JOSE QUIROZ is a 84 year old female who presents the emergency room with right lower extremity swelling. Patient has severe dementia and is unable to provide historical input. EMS and her home health worker provide the history of that she has chronic bilateral lower extremity edema and over the last several days has developed increased swelling with accompanying redness and weeping involving the right lower extremity. The swelling has also been associated with increased pain of the right lower extremity. No other associated or accompanying signs and symptoms have been noted. The patient had prior similar symptoms. No aggravating or ameliorating factors for her lower extremity swelling have been identified by her home health worker. In the emergency room she was found to have hyponatremia at 121.6, a white blood count of 12,600, an elevated BNP and a moderately more edematous, erythematous, warmer to touch right lower extremity as compared to her left. Patient seemed to have tenderness on palpation of the right lower extremity evidenced by grimace, vocalization of pain and withdrawal from the contact. Antibiotic therapy was initiated by the emergency room physician utilizing Rocephin and vancomycin. She was subsequently admitted to the hospital for further evaluation and treatment. Hospital Course Hospital Course: (1) Cellulitis of right lower extremity Is this a current diagnosis for this admission?: Yes Plan: Patient received broad-spectrum IV antibiotics for 4 days initially then transitioned to Bactrim. Continue p.o. Bactrim for 4 more days to complete 12 days of treatment. (2) Acute metabolic encephalopathy Is this a current diagnosis for this admission?: Yes Plan: Toxic metabolic encephalopathy secondary to Ativan administration seems to have resolved. 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 TSH and a.m. cortisol are appropriate. However hyponatremia persisted despite receiving fluids and maintaining positive fluid balance, persisted despite fluid restrictions as well as Lasix administration. Nephrology consulted and started patient on tolvaptan with improvement of sodium to 129. Nephrology recommended yesterday that patient be discharged off tolvaptan with BMP performed in 1 week. (4) Acute on chronic diastolic (congestive) heart failure Is this a current diagnosis for this admission?: Yes Plan: Patient's echo seems to show evidence of right heart failure with pulmonary hypertension and also a component of grade 2 diastolic heart failure. Continue losartan, Coreg and Lasix. Outpatient follow-up with cardiology. (5) Dementia Qualifiers: Dementia type: unspecified type Dementia behavioral disturbance: without behavioral disturbance Qualified Code(s): F03.90 - Unspecified dementia without behavioral disturbance Is this a current diagnosis for this admission?: Yes Plan: I discussed with patient's son regarding patient's cognition issues as well as debility. Patient's son requesting that he prefers for patient to be discharged home with home health rather than to SNF despite my recommendation that patient will benefit more from SNF given her debility. Patient son insists that patient will waste away if sent to a SNF and would like patient to be discharged home. Patient's son has disclosed that he and his aunt will be living with patient. (6) Venous stasis ulcers of both lower extremities Is this a current diagnosis for this admission?: Yes Plan: Chronic and painful to touch. Leg elevation and compression stockings with topical ointments. Venous Dopplers are negative for any DVT. Home health set up to help with wound management. (7) Wheezing Is this a current diagnosis for this admission?: Yes Plan: No noted documentation of asthma/COPD in chart. Wheezing seems to have resolved. Physical Exam Vital Signs: Temp Pulse Resp BP Pulse Ox 98.6 F 77 18 157/96 H 94 03/01/20 08:00 03/01/20 08:49 03/01/20 08:49 03/01/20 08:00 03/01/20 08:49 Intake & Output 02/29/20 03/01/20 03/02/20 06:59 06:59 06:59 Intake Total 50 580 Output Total 1450 800 Balance -1400 -220 Weight 79.5 kg 76.6 kg General appearance: PRESENT: no acute distress, cooperative, hard of hearing Respiratory exam: PRESENT: unlabored Extremities exam: PRESENT: calf tenderness, pedal edema Neurological exam: PRESENT: alert, awake Psychiatric exam: ABSENT: agitated Focused psych exam: ABSENT: pressured speech Results Laboratory Results: WBC 7.3 10^3/uL (4.0-10.5) 02/29/20 05:06 RBC 4.09 10^6/uL (3.72-5.28) 02/29/20 05:06 Hgb 12.1 g/dL (12.0-15.5) 02/29/20 05:06 Hct 34.8 % (36.0-47.0) L 02/29/20 05:06 MCV 85 fl (80-97) 02/29/20 05:06 MCH 29.6 pg (27.0-33.4) 02/29/20 05:06 MCHC 34.8 g/dL (32.0-36.0) 02/29/20 05:06 RDW 14.5 % (11.5-14.0) H 02/29/20 05:06 Plt Count 275 10^3/uL (150-450) 02/29/20 05:06 Lymph % (Auto) Not Reportable 02/22/20 19:03 [place] % (Auto) Not Reportable 02/22/20 19:03 Eos % (Auto) Not Reportable 02/22/20 19:03 Baso % (Auto) Not Reportable 02/22/20 19:03 Absolute Neuts (auto) Not Reportable 02/22/20 19:03 Absolute Lymphs (auto) Not Reportable 02/22/20 19:03 Absolute Monos (auto) Not Reportable 02/22/20 19:03 Absolute Eos (auto) Not Reportable 02/22/20 19:03 Absolute Basos (auto) Not Reportable 02/22/20 19:03 Total Counted 100 02/22/20 19:03 Seg Neutrophils % Not Reportable 02/22/20 19:03 Seg Neuts % (Manual) 92 % (42-78) H 02/22/20 19:03 Band Neutrophils % 1 % (3-5) L 02/22/20 19:03 Lymphocytes % (Manual) 0 % (13-45) L 02/22/20 19:03 Monocytes % (Manual) 7 % (3-13) 02/22/20 19:03 Eosinophils % (Manual) 0 % (0-6) 02/22/20 19:03 Basophils % (Manual) 0 % (0-2) 02/22/20 19:03 Abs Neuts (Manual) 11.7 10^3/uL (1.7-8.2) H 02/22/20 19:03 Abs Lymphs (Manual) 0.0 10^3/uL (0.5-4.7) L 02/22/20 19:03 Abs Monocytes (Manual) 0.9 10^3/uL (0.1-1.4) 02/22/20 19:03 Absolute Eos (Manual) 0.0 10^3/uL (0.0-0.6) 02/22/20 19:03 Abs Basophils (Manual) 0.0 10^3/uL (0.0-0.2) 02/22/20 19:03 Toxic Granulation SLIGHT 02/22/20 19:03 Toxic Vacuolation PRESENT 02/22/20 19:03 Platelet Comment ADEQUATE 02/22/20 19:03 Poikilocytosis SLIGHT 02/22/20 19:03 Anisocytosis SLIGHT 02/22/20 19:03 Tear Drop Cells SLIGHT 02/22/20 19:03 Ovalocytes SLIGHT 02/22/20 19:03 Carla Cells SLIGHT 02/22/20 19:03 Carbonic Acid 1.17 mmol/L (1.05-1.35) 02/29/20 12:20 HCO3/H2CO3 Ratio 25:1 02/29/20 12:20 ABG pH 7.50 (7.35-7.45) H 02/29/20 12:20 ABG pCO2 38.9 mmHg (35-45) 02/29/20 12:20 ABG pO2 78.2 mmHg (80-100) L 02/29/20 12:20 ABG HCO3 29.6 mmol/L (20-24) H 02/29/20 12:20 ABG Total CO2 30.8 mmol/L (21-25) H 02/29/20 12:20 ABG O2 Saturation 96.5 % (94-98) 02/29/20 12:20 ABG Base Excess 6.0 mmol/L 02/29/20 12:20 FiO2 21% 02/29/20 12:20 Sodium 129.0 mmol/L (137-145) L 03/01/20 09:04 Potassium 4.2 mmol/L (3.6-5.0) 03/01/20 09:04 Chloride 94 mmol/L (98-107) L 03/01/20 09:04 Carbon Dioxide 28 mmol/L (22-30) 03/01/20 09:04 Anion Gap 7 (5-19) 03/01/20 09:04 BUN 14 mg/dL (7-20) 03/01/20 09:04 Creatinine 0.46 mg/dL (0.52-1.25) L 03/01/20 09:04 Est GFR ( Amer) > 60 (>60) 03/01/20 09:04 Est GFR (Non-Af Amer) Cancelled 02/24/20 05:05 Est GFR (MDRD) Non-Af > 60 (>60) 03/01/20 09:04 Glucose 118 mg/dL (75-110) H 03/01/20 09:04 Serum Osmolality 248 mOsm/kg (275-301) L 02/23/20 13:30 Calcium 8.2 mg/dL (8.4-10.2) L 03/01/20 09:04 Magnesium 1.9 mg/dL (1.6-2.3) 02/27/20 05:27 Total Bilirubin 1.1 mg/dL (0.2-1.3) 02/22/20 19:03 Direct Bilirubin 0.1 mg/dL (0.0-0.4) 02/22/20 19:03 Neonat Total Bilirubin Not Reportable 02/22/20 19:03 Neonat Direct Bilirubin Not Reportable 02/22/20 19:03 Neonat Indirect Bili Not Reportable 02/22/20 19:03 AST 30 U/L (14-36) 02/22/20 19:03 ALT 29 U/L (<35) 02/22/20 19:03 Alkaline Phosphatase 177 U/L (38-126) H 02/22/20 19:03 NT-Pro-B Natriuret Pep 2250 pg/mL (<450) H 02/22/20 19:03 Total Protein 7.1 g/dL (6.3-8.2) 02/22/20 19:03 Albumin 3.7 g/dL (3.5-5.0) 02/22/20 19:03 Triglycerides 82 mg/dL (<150) 02/26/20 10:21 Cholesterol 80.10 mg/dL (0-200) 02/26/20 10:21 LDL Cholesterol Direct 38 mg/dL (<100) 02/26/20 10:21 VLDL Cholesterol 16.0 mg/dL (10-31) 02/26/20 10:21 HDL Cholesterol 30 mg/dL (>40) L 02/26/20 10:21 EGFR Cancelled 02/24/20 05:05 TSH 3.09 uIU/mL (0.47-4.68) 02/23/20 04:29 Cortisol AM Sample 34.00 ug/dL (4.46-22.7) H 02/27/20 05:27 Urine Color YELLOW 02/23/20 03:51 Urine Appearance CLOUDY 02/23/20 03:51 Urine pH 8.0 (5.0-9.0) 02/23/20 03:51 Ur Specific [place] 1.019 02/23/20 03:51 Urine Protein NEGATIVE mg/dL (NEGATIVE) 02/23/20 03:51 Urine Glucose (UA) NEGATIVE mg/dL (NEGATIVE) 02/23/20 03:51 Urine Ketones 20 mg/dL (NEGATIVE) H 02/23/20 03:51 Urine Blood SMALL (NEGATIVE) H 02/23/20 03:51 Urine Nitrite NEGATIVE (NEGATIVE) 02/23/20 03:51 Urine Bilirubin NEGATIVE (NEGATIVE) 02/23/20 03:51 Urine Urobilinogen NEGATIVE mg/dL (<2.0) 02/23/20 03:51 Ur Leukocyte Esterase SMALL (NEGATIVE) H 02/23/20 03:51 Urine WBC (Auto) 7 /HPF 02/23/20 03:51 Urine RBC (Auto) 4 /HPF 02/23/20 03:51 Squamous Epi Cells Auto 1 /HPF 02/23/20 03:51 Urine Mucus (Auto) OCC /LPF 02/23/20 03:51 Urine Osmolality 517 mOsm/kg (300-900) 02/23/20 23:13 Urine Sodium 107 mmol/L (30-90) H 02/23/20 23:13 Urine Ascorbic Acid NEGATIVE (NEGATIVE) 02/23/20 03:51 Time Trough Drawn 192202/25/20 19:23 Vancomycin Trough 6.5 ug/mL (5.0-20.0) 02/25/20 19:23 02/22/20 19:03 NT-Pro-B Natriuret Pep 2250 H Impressions: Chest X-Ray 02/22/20 21:01 IMPRESSION: Cardiac enlargement Basilar atelectasis with possible small left effusion. Venous Doppler Study 02/27/20 00:00 IMPRESSION: 1. Examination is limited as above. NO EVIDENCE DVT OR SVT IN EITHER LOWER EXTREMITY ON THE OBTAINED STUDY. Plan Time Spent: Greater than 30 Minutes Stroke Is this a Stroke Patient?: No Acute Heart Failure - Is this a Heart Failure Patient?: No
[2020-03-01] MEDS ORDERED: NYSTATIN TOPICAL POWDER 15 GM TP ONE (15:30)
[2020-03-01 16:29] VITALS: BP 131/55
== END 2020-03-01 16:55 | disposition home health service (06) | DRG 602 ==
LOC: ER 18:34 → EH 23:06 → 4N 02-23 01:00
PROVIDERS: ADMIT Emergency Medicine; ATTEND Internal Medicine
DX: L03.115 Cellulitis of right lower limb (principal); I50.33 Acute on chronic diastolic (congestive) heart failure; G93.41 Metabolic encephalopathy; E22.2 Syndrome of inappropriate secretion of antidiuretic hormone; I11.0 Hypertensive heart disease with heart failure; I25.10 Atherosclerotic heart disease of native coronary artery without angina pectoris; I87.8 Other specified disorders of veins; D72.829 Elevated white blood cell count, unspecified; F03.90 Unspecified dementia, unspecified severity, without behavioral disturbance, psychotic disturbance, mood disturbance, and anxiety; I73.00 Raynaud's syndrome without gangrene; I25.2 Old myocardial infarction; Z79.82 Long term (current) use of aspirin
CPT/HCPCS: 36415; 36600; 71045; 80048; 80053; 80061; 80202; 81001; 82533; 82803; 83735; 83880; 83930; 83935; 84300; 84443; 85025; 85027; 87040; 93005; 93010; 93306; 93970; 94640; 96365; 96367; 99284; A9270-GY; C1758; J0696; J1644; J1940; J2060; J2270; J2543; J2550; J3370; J3486; J3490; J7030; J7050; J7060; J7620